=== PATIENT | male | born 1940 | race Caucasian/White ===

== ENCOUNTER 2020-07-11 14:45 | Inpatient (IN) | payer MEDICARE, BC ==
[~2020-07-11] VITALS: Ht 177.8 cm; Wt 79.8 kg
[2020-07-11] MEDS ORDERED: MAGNESIUM HYDROXIDE 30 ML UDC PO PRN (18:00)
[2020-07-11] MEDS ORDERED: BLOOD SUGAR DIAGNOSTIC 1 EACH STRIP IN ONE (18:00)
[2020-07-11] MEDS ORDERED: clonazePAM 0.5 MG TABLET PO PRN ×2 (18:00→22:00)
[2020-07-11] MEDS ORDERED: AMYL1CAP54 PO (18:12)
[2020-07-11] MEDS ORDERED: LOPE2CAP PO (18:12)
[2020-07-11] MEDS ORDERED: LISI20TA30 PO (18:12)
[2020-07-11] MEDS ORDERED: CITA10TA9 PO (18:12)
[2020-07-11] MEDS ORDERED: SIMV-46 PO (18:12)
[2020-07-11] MEDS ORDERED: LORA-259 PO (18:12)
[2020-07-11] MEDS ORDERED: METF-440 PO (18:12)
[2020-07-11] MEDS ORDERED: LOPERAMIDE HCL (2 MG CAP) 2 MG CAPSULE PO PRN (20:30)
[2020-07-11] MEDS: LISINOPRIL (20MG) 20 MG TABLET PO SCH (20:30)
--- NOTE | 2020-07-11 21:09 | NUR ---
GPS RN NOTES: PATIENT REFUSED ACCU CHEK AND 20:30 LISINOPRIL 20MG/1TAB PO ORDERED. PATIENT IS VERY UNCOOPERATIVE AND VERBALLY ABUSIVE. WILL CONTINUE TO MONITOR.
[2020-07-11 22:46] VITALS: BP 167/98
--- NOTE | 2020-07-12 00:09 | NUR ---
GPS DRILLING ENGINEER NOTES: PATIENT ARRIVED THIS UNIT WITH 2 EMT STAFF VIA STRETCHER, ON A 5150 HOLD FOR DTS/DTO PLACED 07/10/20 AT 2005. PER HOLD PATIENT WAS REPORTED MISSING BUT PATIENT FRIEND CALLED TO STATE PATIENT HAS BEEN AT HIS RESIDENCE SINCE NOON BUT HAS REFUSED TO EAT OR DRINK. PATIENT WAS RAMBLING NON STOP AND MAKING PARANOID STATEMENTS, DISORIENTED, DELUSIONAL, NOT ABLE TO MAINTAIN TRAIN OF THOUGHTS, AND WAS REPORTEDLY CARRYING A LOADED FIREARM IN HIS POCKET. UPON FACE TO FACE EVALUATION PATIENT PRESENTS A/O X1, BLUNTED AFFECT, DELUSIONAL, PARANOID, UNCOOPERATIVE, VERBALLY ABUSIVE TO STAFF, DISORIENTED, CONFUSED, CURSING. REFUSING REDIRECTION. PATIENT HAS STEADY GAIT. BLADDER AND BOWEL CONTINENT. PATIENT WAS ADVISED OF HIS HOLD AND PATIENTS RIGHT BOOKLET GIVEN . PATIENT IS UNDER THE PSYCH CARE OF DR. AWAN AND THE MEDICAL CARE OF DR. CRAIN. PATIENT BELONGINGS WERE INVENTORIED AND CHECKED FOR CONTRABAND. ALL CONTRABAND REMOVED AND STORED IN PATIENT HALLWAY LOCKER. SKIN ASSESSMENT DONE AND WOUND CARE CONSULT ORDERED. PATIENT REFUSED TO SIGN ADMISSION PAPERWORK, PATIENT REFUSED ACCU CHEK, AND MRSA. PATIENT DENIES PAIN OR DISCOMFORT AT THIS TIME. DENIES SI/HI AT THIS TIME. BED IN LOWEST POSITION AND LOCKED WITH SIDE RAILS UP X2. BED ALARM ON AND CALL LIGHT WITHIN REACH. FLUID AND SNACKS GIVEN TOLERATED. WILL CONTINUE TO MONITOR Q15MIN ROUNDS FOR SAFETY, MOOD AND BEHAVIOR.
--- NOTE | 2020-07-12 06:35 | NUR ---
GPS RN CLOSING NOTES: PATIENT IS AWAKE, A/O X1, CURRENTLY SITTING IN HALLWAY. PATIENT SLEPT 2HRS THIS SHIFT. SKIN ASSESSMENT DONE, PICTURES TAKEN AND PLACED IN PATIENT CHART. NO S/S OF DISTRESS. RESPIRATION EVEN AND UNLABORED WITH EQUAL RISE AND FALL OF THE CHEST ON ROOM AIR. PATIENT REFUSED ALL PO MEDS THIS SHIFT. BED IN LOWEST POSITION AND LOCKED WITH SIDE RAILS UP X2. WILL CONTINUE TO MONITOR FOR SAFETY, MOOD AND BEHAVIOR AND ENDORSE TO AM SHIFT
--- NOTE | 2020-07-12 07:15 | NUR ---
gps gift consultant: notes lindy (daughter) called back and spoke to mervat (rn) and updated plan of care and behaviors.
[2020-07-12] MEDS: LIPASE/PROTEASE/AMYLASE 1 EACH CAPSULE.DR PO SCH ×3 (08:00→17:18)
[2020-07-12] MEDS: METFORMIN 500 MG TABLET PO SCH ×2 (08:30→17:00)
[2020-07-12] MEDS: LISINOPRIL (20MG) 20 MG TABLET PO SCH (08:30)
--- NOTE | 2020-07-12 08:31 | NUR ---
gps twister doffer: notes offered am meds, but pt started cursing. also pt refused to eat breakfast and refused vital signs.
[2020-07-12] MEDS ORDERED: HALOPERIDOL LACTATE INJ 5 MG/ML VIAL IM STA (11:14)
[2020-07-12] MEDS ORDERED: LORAZEPAM INJ 2 MG/ML VIAL IM STA (11:14)
[2020-07-12] MEDS ORDERED: CITALOPRAM HYDROBROMIDE 10 MG TABLET PO SCH (13:00)
--- NOTE | 2020-07-12 14:00 | NUR ---
RN NOTE :At 11:15 Patient agitated ,pacing in hallway ,yelling at staff ,not following directions ,paranoid and suspicious .Offered po Ativan 1:1 interaction with patient but unsuccessful ,called with new order Ativan 1mg IM ,Haldol 2.5 mg IM ,given IM injection by primary NURSE at 12:25 no physical hold and patient accept the injection voluntarily .patient refused VS x4 every 15 minutes ,no SOB ,no s/s of distress noted patient tolerated injection well ,will continue to monitor .
[2020-07-12 16:00] VITALS: BP 164/86
[2020-07-12] MEDS ORDERED: DEXTROSE 50%-WATER 50 ML DISP.SYRIN IV PRN (16:30)
[2020-07-12] MEDS: SIMVASTATIN 20 MG TABLET PO SCH (17:18)
[2020-07-12] MEDS: BLOOD SUGAR DIAGNOSTIC 1 EACH STRIP IN SCH ×2 (17:18→22:00)
[2020-07-12] MEDS: DIVALPROEX SODIUM 125 MG CAP.SPRINK PO SCH ×3 (18:30→21:00)
--- NOTE | 2020-07-12 19:08 | NUR ---
gps siding coreboard inspector: notes pt ask for his medication, but change his mind. pt remains non-compliant with meds.
[2020-07-12 20:00] VITALS: BP 148/75
--- NOTE | 2020-07-12 21:41 | NUR ---
GPS RN NOTES: PATIENT REFUSED 2100 DEPAKOTE 125MG/1CAP PO ORDERED. PER PATIENT "I DON'T TAKE PLACEBO". WILL CONTINUE TO MONITOR.
[2020-07-12] MEDS: OLANZAPINE ZYDIS 5 MG TAB.RAPDIS PO SCH (22:00)
--- NOTE | 2020-07-12 22:07 | NUR ---
GPS RN NOTES: PATIENT REFUSED 2200 OLANZAPINE AND ACCU CHEK ORDERED. WILL CONTINUE TO MONITOR.
--- NOTE | 2020-07-13 06:29 | NUR ---
GPS RN CLOSING NOTES: PATIENT IS AWAKE, A/O X2, AMBULATING IN HALLWAY. PATIENT SLEPT 9HRS THIS SHIFT. NO S/S OF DISTRESS. RESPIRATION EVEN AND UNLABORED WITH EQUAL RISE AND FALL OF THE CHEST ON ROOM AIR. PATIENT REFUSED ALL PO MEDS THIS SHIFT. BED IN LOWEST POSITION AND LOCKED WITH SIDE RAILS UP X2. WILL CONTINUE TO MONITOR FOR SAFETY, MOOD AND BEHAVIOR AND ENDORSE TO AM SHIFT
[2020-07-13 06:57] LABS: ALBUMIN 3.8 g/dL (3.4-5.0); BILIRUBIN,TOTAL 0.6 mg/dL (0.2-1.0); CALCIUM, SERUM 9.3 mg/dL (8.5-10.1); TOTAL PROTEIN, SERUM 7.2 g/dL (6.4-8.2)
[2020-07-13] MEDS: BLOOD SUGAR DIAGNOSTIC 1 EACH STRIP IN SCH ×5 (07:30→21:01)
[2020-07-13 08:00] VITALS: BP 156/98
[2020-07-13] MEDS: LISINOPRIL (20MG) 20 MG TABLET PO SCH (08:16)
[2020-07-13] MEDS: OLANZAPINE ZYDIS 5 MG TAB.RAPDIS PO SCH ×2 (08:16→21:01)
[2020-07-13] MEDS: DIVALPROEX SODIUM 125 MG CAP.SPRINK PO SCH ×2 (08:17→21:00)
[2020-07-13] MEDS: METFORMIN 500 MG TABLET PO SCH ×2 (08:17→16:43)
[2020-07-13] MEDS: LIPASE/PROTEASE/AMYLASE 1 EACH CAPSULE.DR PO SCH ×3 (08:17→18:00)
--- NOTE | 2020-07-13 09:00 | NUR ---
RN NOTE- PT ALERT ORIENTED TO PERSON PLACE CONFUSED BUT INTERACTIVE AND APPROPRIATE, BLUNTED AFFECT, PO INTAKE GOOD , MED COMPLIANT THIS MORNING VISIBLE ON UNIT, TOES SEEN BY GLASS FURNACE TENDER. RAYNAUDS DX , TOES TO BILATERAL FEET W ERYTHEMA AND COLD TO PALPATION.
--- NOTE | 2020-07-13 10:01 | NUR ---
WOUND CARE CONSULT: PT SEEN FOR DISCOLORATION TO TOES, PRESENT ON ADMISSION. PT HAS BLANCHABLE REDNESS TO TOES WITH SMALL SCAB TO LEFT 3RD TOE, PRESENT ON ADMISSION. RECOMMEND DPM CONSULT. DR METCALF NOTIFIED. 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 PT IS AMBULATORY AND CONTINENT. WILL SEE PRN. LITTLEJOHN IN AGREEMENT WITH PLAN OF CARE.
[2020-07-13] MEDS: SIMVASTATIN 20 MG TABLET PO SCH (18:00)
--- NOTE | 2020-07-13 21:51 | NUR ---
GPS RN NOTE MEDICATION REFUSAL PATIENT REFUSED SCHEDULED MEDS DIVALPROEX SODIUM 125 MG AND OLANZAPINE 2.5 MG AND ACCU CHECK OFFERED X3 DESPITE EXPLAINING RISKS AND BENEFITS. PATIENT VERBALLY ABUSIVE AND SPITTING TOWARDS STAFF WHEN OFFERED MEDICATION. WILL CONTINUE TO MONITOR.
[2020-07-14] MEDS: BLOOD SUGAR DIAGNOSTIC 1 EACH STRIP IN SCH ×4 (07:27→21:41)
[2020-07-14] MEDS: LIPASE/PROTEASE/AMYLASE 1 EACH CAPSULE.DR PO SCH ×3 (08:00→17:09)
[2020-07-14] MEDS: DIVALPROEX SODIUM 125 MG CAP.SPRINK PO SCH ×2 (09:00→21:00)
[2020-07-14] MEDS: OLANZAPINE ZYDIS 5 MG TAB.RAPDIS PO SCH ×2 (09:00→21:43)
[2020-07-14] MEDS: NITROGLYCERIN 30 GM TUBE TP SCH (09:00)
[2020-07-14] MEDS: METFORMIN 500 MG TABLET PO SCH ×2 (09:00→17:00)
[2020-07-14] MEDS: LISINOPRIL (20MG) 20 MG TABLET PO SCH (09:00)
--- NOTE | 2020-07-14 09:03 | NUR ---
GPS/RN NOTES PATIENT REFUSED SCHEDULED MEDICATIONS DEPAKOTE 125 MG 1 TAB, GLUCOPHAGE 1000 MG 1 TAB, PRINIVIL 20 MG 1 TAB ZYPREXA 20 MG NITROL OINTMENT. ACCU CHECK OFFERED X3 DESPITE EXPLAINING RISKS AND BENEFITS. PATIENT VERBALLY ABUSIVE, CURSING AND SPITTING TOWARDS STAFF WHEN OFFERED MEDICATION. OFFERED KLONOPIN 0.25 1/2 TAB PATIENT AGREED TO TAKE IT, PATIENT SUDDENLY CHANGE HIS MIND, PATIENT REFUSED IT AGAIN EXPLAINED THE RISK AND BENEFIT X3. KLONOPIN WAS WASTED. MD WAS AWARE FOR MEDICATIONS REFUSAL. WILL CONTINUE TO MONITOR.
--- NOTE | 2020-07-14 12:14 | NUR ---
GPS/RN NOTES PATIENT REFUSED SCHEDULE MEDICATION PANCREAZE 4200 UNIT 2 TABS, EXPLAINED THE RISK AND BENEFITS. WILL CONTINUE TO MONITOR.
--- NOTE | 2020-07-14 15:10 | NUR ---
DPOA Contact: CUCO called the pts daughter/DPOA, Amanda [phone], and asked for the paperwork to be faxed over. CUCO then went over the pts treatment and attempted to discuss the pts discharge plan but the pts DPOA stated that she wanted to see what the pt was going to present like closer to discharge to determine the most appropriate plan. CUCO stated that she will keep her updated.
[2020-07-14] MEDS ORDERED: LORAZEPAM INJ 2 MG/ML VIAL IM STA (15:12)
[2020-07-14] MEDS ORDERED: diphenhydrAMINE HCL 50 MG/ML VIAL IM STA (15:12)
[2020-07-14] MEDS ORDERED: HALOPERIDOL LACTATE INJ 5 MG/ML VIAL IM STA (15:12)
--- NOTE | 2020-07-14 15:16 | NUR ---
GPS RN NOTE: PATIENT VERY AGITATED, IRRITABLE, COMBATIVE TO STAFF, AMBULATORY REFUSED VS, REFUSED PO MEDICATIONS, PT AGGRESSIVE UNABLE TO CONTROL BEHAVIOR. HITTING STAFF. DR. AWAN NOTIFIED WITH ORDER ATIVAN 1 MG IM ONCE,HALDOL 5 MG IM ONCE, BENADRYL 25 MG IM ONCE ORDER PLACED AND CARED OUT WILL CONTINUE MONITORING.
[2020-07-14 16:00] VITALS: BP 149/81
--- NOTE | 2020-07-14 16:10 | NUR ---
Initial Discharge Plan: Pt currently resides at his home located at [address] [place] [address] Rd, [place] [address]; ([phone]). Per pts daughter, Amanda [phone], she is unsure of the discharge plan at this time because it depends on the pts stability at the time of discharge. SW will work with the pts DPOA, pt, and the MD regarding appropriate discharge planning. SW will form a safe and proper discharge.
[2020-07-14] MEDS: SIMVASTATIN 20 MG TABLET PO SCH (17:09)
--- NOTE | 2020-07-14 17:11 | NUR ---
GPS/RN NOTES PATIENT REFUSED SCHEDULED MEDICATIONS PANCREASE 4200 UNIT, GLUCOPHAGE 1000 MG , AND ZOCOR 20MG , DESPITE EXPLAINING RISKS AND BENEFITS. MD WAS AWARE FOR MEDICATIONS REFUSAL. WILL CONTINUE TO MONITOR.
[2020-07-14 20:54] VITALS: BP 112/45
--- NOTE | 2020-07-14 21:43 | NUR ---
GPS/CULINARY WORKER NOTES: PT. REFUSED HS MEDS. OFFERED 3X. EXPLAINED RISK AND BENEFITS. PT. STILL REFUSED. WILL CONTINUE TO MONITOR.
[2020-07-15] MEDS: MAG HYDROX/AL HYDROX/SIMETH 30 ML UDC PO PRN (06:06)
--- NOTE | 2020-07-15 06:06 | NUR ---
GPS RN NOTE, PATIENT HAS A COMPLAINT OF INDIGESTION AND IS REQUESTING MAALOX AT THIS TIME. PATIENT VITAL SIGNS ARE STABLE. GAVE MAALOX 30 ML 1 UNIT DOSE Q12HR PRN ORDERED. WILL CONTINUE TO MONITOR THIS PATIENT WITH THE HELP OF STAFF.
[2020-07-15] MEDS: BLOOD SUGAR DIAGNOSTIC 1 EACH STRIP IN SCH ×4 (07:33→21:13)
[2020-07-15] MEDS: ACETAMINOPHEN 325 MG TABLET PO PRN (07:39)
--- NOTE | 2020-07-15 07:39 | NUR ---
RN NOTE- C/O BACK PAIN GENERALIZED . TYLENOL 650 MG GIVEN
[2020-07-15] MEDS: INSULIN REGULAR, HUMAN 100 UNIT/ML 3 ML VIAL SQ PRN (07:42)
[2020-07-15 08:00] VITALS: BP 148/94
[2020-07-15] MEDS: LIPASE/PROTEASE/AMYLASE 1 EACH CAPSULE.DR PO SCH ×3 (08:00→17:42)
[2020-07-15] MEDS: LISINOPRIL (20MG) 20 MG TABLET PO SCH (08:28)
[2020-07-15] MEDS: METFORMIN 500 MG TABLET PO SCH ×2 (08:28→16:46)
[2020-07-15] MEDS: DIVALPROEX SODIUM 125 MG CAP.SPRINK PO SCH ×2 (08:28→21:07)
[2020-07-15] MEDS: NITROGLYCERIN 30 GM TUBE TP SCH (08:29)
[2020-07-15] MEDS: OLANZAPINE ZYDIS 5 MG TAB.RAPDIS PO SCH ×2 (08:29→22:00)
--- NOTE | 2020-07-15 09:00 | NUR ---
RN NOTE- PT ALERT ORIENTED TO SELF, CONFUSED DISORGANIZED. OPPOSITIONAL TO MEDS AND CARE, ISOLATIVE AND WITHDRAWN, PO INTAKE FAIR, PENDING REISE HEARING
--- NOTE | 2020-07-15 14:22 | NUR ---
Dr. Avelar spoke to pt. and agreed to take the meds. Dr. Avelar ordered Zyprexa Zydis 2.5 mg po x1 and Depakote sprinkle 125 mg x1.
--- NOTE | 2020-07-15 14:24 | NUR ---
Dr. Avelar made aware that the hearing and [facility] hearing scheduled tomorrow 07/16/20 at 4:00 pm.
[2020-07-15] MEDS ORDERED: DIVALPROEX SODIUM 125 MG CAP.SPRINK PO ONE (14:30)
[2020-07-15] MEDS ORDERED: OLANZAPINE ZYDIS 5 MG TAB.RAPDIS PO ONE (14:30)
[2020-07-15 16:00] VITALS: BP 154/81
--- NOTE | 2020-07-15 17:00 | NUR ---
RN NOTE- ACCU CHECK 154. PT REFUSES SSI
[2020-07-15] MEDS: SIMVASTATIN 20 MG TABLET PO SCH (17:42)
[2020-07-15 20:00] VITALS: BP 152/73
[2020-07-15 20:15] VITALS: BP 152/73
--- NOTE | 2020-07-15 22:08 | NUR ---
RN NOTE PATIENT REFUSED ZYPREXA ZYDIS 2.5 MG DESPITE OF RISKS & BENEFIT EXPLANATIONS. FIRST PATIENT AGREED TO TAKE THE MEDICINE BUT WHEN SAW IT IN A MEDICINE CUP, PATIENT STATED, DON'T EVEN GIVE ME THAT HALF WHITE PILL, I DON'T WANT IT." PT. CONTINUED TO REFUSE ZYPREXA ZYDIS SCHEDULED. MEDICINE WAS OPENED, OFFERED, REFUSED BY THE PATIENT & WASTED. WILL CONTINUE TO MONITOR THE PATIENT.
[2020-07-16] MEDS: MAG HYDROX/AL HYDROX/SIMETH 30 ML UDC PO PRN ×2 (00:24→20:31)
--- NOTE | 2020-07-16 00:25 | NUR ---
GPS RN NOTE, PATIENT HAS A COMPLAINT OF INDIGESTION AND IS REQUESTING MAALOX AT THIS TIME. PATIENT VITAL SIGNS ARE STABLE. GAVE MAALOX 30 ML 1 UNIT DOSE Q4HR PRN ORDERED. WILL CONTINUE TO MONITOR THIS PATIENT WITH THE HELP OF STAFF.
--- NOTE | 2020-07-16 04:28 | NUR ---
RN NOTE: IMODIUM GIVEN PATIENT VERBALIZED THAT HE HAD LOOSE BM X 1 & REQUESTED TO TAKE MEDICINE RIGHT NOW. IMODIUM 2 MG 1 CAP PO ADMINISTERED. WILL CONTINUE TO MONITOR FOR EFFECTIVENESS OF THE MEDICINE.
[2020-07-16] MEDS: ACETAMINOPHEN 325 MG TABLET PO PRN ×2 (06:13→23:54)
--- NOTE | 2020-07-16 06:13 | NUR ---
GPS RN NOTE, PATIENT HAS A COMPLAINT OF CHRONIC LOWER BACK PAIN AT 2 OUT 10 ON THE PAIN SCALE AND IS REQUESTING TYLENOL AT THIS TIME. PATIENT VITAL SIGNS ARE STABLE. GAVE TYLENOL 650 MG PO Q6HR PRN ORDERED. WILL REASSESS FOR PAIN AND I WILL CONTINUE TO MONITOR THIS PATIENT WITH THE HELP OF STAFF.
[2020-07-16] MEDS: BLOOD SUGAR DIAGNOSTIC 1 EACH STRIP IN SCH ×4 (07:41→21:37)
[2020-07-16 08:00] VITALS: BP 148/86
[2020-07-16] MEDS: LIPASE/PROTEASE/AMYLASE 1 EACH CAPSULE.DR PO SCH ×3 (08:17→17:05)
[2020-07-16] MEDS: METFORMIN 500 MG TABLET PO SCH ×2 (08:17→16:05)
[2020-07-16] MEDS: DIVALPROEX SODIUM 125 MG CAP.SPRINK PO SCH ×2 (08:17→20:17)
[2020-07-16] MEDS: LISINOPRIL (20MG) 20 MG TABLET PO SCH (08:17)
[2020-07-16] MEDS: OLANZAPINE ZYDIS 5 MG TAB.RAPDIS PO SCH ×2 (08:20→21:30)
[2020-07-16] MEDS: GLUCERNA SHAKE 237 ML CAN PO SCH ×2 (08:28→16:05)
[2020-07-16] MEDS: NITROGLYCERIN 30 GM TUBE TP SCH (08:28)
--- NOTE | 2020-07-16 09:00 | NUR ---
RN NOTE- PT A BIT MORE CALM, INTERACTIVE TODAY BLUNTED AFFECT MED COMPLIANT THOUGH DOESN'T WANT ZYPREXA "MAKES ME SLEEPY" HE STATED. HOWEVER, PT TOOK AFTER I EXPLAINED IT WAS REQUIRED BY MD AND TX REGIMEN. PO INTAKE GOOD, TOPICAL NITRO PASTE APPLIED TO TOES BILATERAL FEET FOR RAYNAUDS
--- NOTE | 2020-07-16 14:46 | NUR ---
RN NOTE- COVID RAPID TEST COMPLETED FOR PLACEMENT SUNDAY
[2020-07-16 15:57] VITALS: BP 139/89
--- NOTE | 2020-07-16 16:05 | NUR ---
DPOA Contact: CUCO called the pts daughter/DPOA, Amanda [phone], and left a voicemail informing her about the pts Risilvio.
[2020-07-16] MEDS: SIMVASTATIN 20 MG TABLET PO SCH (17:05)
--- NOTE | 2020-07-16 17:05 | NUR ---
RN NOTE- ACCU CHECK - BS-135 PT REFUSED SSI
[2020-07-16 20:00] VITALS: BP 151/83
[2020-07-16 20:18] VITALS: BP 151/83
--- NOTE | 2020-07-16 20:35 | NUR ---
RN NOTE: PRN MAALOX GIVEN PATIENT IS C/O INDIGESTION & GAS, PATIENT REQUESTED MAALOX. PRN MAALOX 30 ML PO ADMINISTERED ORDERED. WILL CONTINUE TO MONITOR.
--- NOTE | 2020-07-16 23:54 | NUR ---
GPS RN NOTE: PAIN PATIENT C/O CHRONIC LOWER BACK PAIN AT 3 OUT 10 ON THE PAIN SCALE AND IS REQUESTING TYLENOL AT THIS TIME. PATIENT VITAL SIGNS ARE STABLE. GAVE TYLENOL 650 MG PO PRN ORDERED. WILL CONTINUE TO MONITOR THE PATIENT.
[2020-07-17 08:00] VITALS: BP 152/95
[2020-07-17] MEDS: GLUCERNA SHAKE 237 ML CAN PO SCH ×2 (08:00→17:00)
[2020-07-17] MEDS: OLANZAPINE ZYDIS 5 MG TAB.RAPDIS PO SCH ×2 (08:10→21:46)
[2020-07-17] MEDS: LIPASE/PROTEASE/AMYLASE 1 EACH CAPSULE.DR PO SCH ×3 (08:10→17:03)
[2020-07-17] MEDS: BLOOD SUGAR DIAGNOSTIC 1 EACH STRIP IN SCH ×4 (08:11→21:30)
[2020-07-17] MEDS: DIVALPROEX SODIUM 125 MG CAP.SPRINK PO SCH ×2 (08:11→21:11)
[2020-07-17] MEDS: METFORMIN 500 MG TABLET PO SCH ×2 (08:11→17:03)
[2020-07-17] MEDS: LISINOPRIL (20MG) 20 MG TABLET PO SCH (08:11)
[2020-07-17] MEDS: NITROGLYCERIN 30 GM TUBE TP SCH (08:26)
[2020-07-17 16:00] VITALS: BP 127/79
[2020-07-17] MEDS: MAG HYDROX/AL HYDROX/SIMETH 30 ML UDC PO PRN (16:36)
[2020-07-17] MEDS: SIMVASTATIN 20 MG TABLET PO SCH (17:03)
[2020-07-17 19:39] VITALS: BP 151/84
[2020-07-17 19:45] VITALS: BP 151/84
--- NOTE | 2020-07-17 20:15 | NUR ---
RN NOTE PATIENT VERBALIZED THAT HE IS "SLIGHTLY CONSTIPATED" & HAD A BOWEL MOVEMENT ON 07/16/20 & WAS NORMAL. PATIENT REFUSED TO TAKE ANY MEDICINE AT THIS TIME, OFFERED HIM PRUNE JUICE & PT. AGREED TO TAKE IT. PRUNE JUICE GIVEN TO THE PATIENT & TOLERATED WELL WILL CONTINUE TO MONITOR.
--- NOTE | 2020-07-17 20:56 | NUR ---
RN NOTE PER PATIENT, " PRUNE JUICE WORKED, I HAD BM, BIG ONE, I AM GOOD NOW." WILL CONTINUE TO MONITOR.
[2020-07-17] MEDS: INSULIN REGULAR, HUMAN 100 UNIT/ML 3 ML VIAL SQ PRN (21:28)
--- NOTE | 2020-07-17 21:29 | NUR ---
RN NOTE: REFUSED INSULIN PATIENT'S BLOOD SUGAR IS 132 MG/DL, PATIENT REFUSED SSI FOR COVERAGE X 3 DESPITE OF EXPLANATIONS.
[2020-07-18] MEDS: BLOOD SUGAR DIAGNOSTIC 1 EACH STRIP IN SCH ×4 (07:52→21:21)
[2020-07-18] MEDS: GLUCERNA SHAKE 237 ML CAN PO SCH ×2 (07:59→17:00)
[2020-07-18 08:00] VITALS: BP 140/83
[2020-07-18] MEDS: LISINOPRIL (20MG) 20 MG TABLET PO SCH (08:43)
[2020-07-18] MEDS: DIVALPROEX SODIUM 125 MG CAP.SPRINK PO SCH ×2 (08:43→21:20)
[2020-07-18] MEDS: METFORMIN 500 MG TABLET PO SCH ×2 (08:44→18:18)
[2020-07-18] MEDS: OLANZAPINE ZYDIS 5 MG TAB.RAPDIS PO SCH ×2 (08:44→21:21)
[2020-07-18] MEDS: LIPASE/PROTEASE/AMYLASE 1 EACH CAPSULE.DR PO SCH ×3 (08:44→18:19)
[2020-07-18] MEDS: NITROGLYCERIN 30 GM TUBE TP SCH (08:45)
[2020-07-18 16:06] VITALS: BP 110/71
[2020-07-18] MEDS: SIMVASTATIN 20 MG TABLET PO SCH (18:19)
--- NOTE | 2020-07-18 20:20 | NUR ---
GPS RN NOTE PATIENT HAD PREVIOUSLY EATEN 1/2 A SANDWICH 30 MINUTES AGO. DEMANDING FOR MORE FOOD. PATIENT REQUESTED MAALOX AND ADMINISTERED ORDERED. Addendum: 07/19/20 at 0250 by SUHBHAM PAN RN ERROR: MAALOX NOT ADMINISTERED AT THIS TIME. PLS DISREGARD.
[2020-07-18 20:38] VITALS: BP 118/64
[2020-07-18] MEDS: INSULIN REGULAR, HUMAN 100 UNIT/ML 3 ML VIAL SQ PRN (21:21)
[2020-07-18] MEDS: MAG HYDROX/AL HYDROX/SIMETH 30 ML UDC PO PRN (22:10)
--- NOTE | 2020-07-18 22:10 | NUR ---
GPS RN NOTE PATIENT C/O INDIGESTION AND REQUESTED FOR MAALOX. ADMINISTERED MAALOX ORDERED. WILL CONTINUE TO REASSESS PATIENT FOR INDIGESTION WITHIN 1 HOUR.
[2020-07-19] MEDS: MAG HYDROX/AL HYDROX/SIMETH 30 ML UDC PO PRN ×2 (02:38→22:01)
--- NOTE | 2020-07-19 02:38 | NUR ---
GPS RN NOTE PATIENT WANDERING IN HALLWAYS. OFFERED AMBIEN BUT PATIENT REFUSED. REDIRECTED PATIENT PATIENT TO GO BACK TO ROOM. PATIENT C/O 3/10 BACK PAIN AND ADMINISTERED TYLENOL ORDERED. PATIENT REQUESTED FOR MAALOX AND ADMINISTERED ORDERED. WILL REASSESS FOR PAIN WITHIN 1 HOUR.
[2020-07-19] MEDS: ACETAMINOPHEN 325 MG TABLET PO PRN (02:39)
[2020-07-19] MEDS: BLOOD SUGAR DIAGNOSTIC 1 EACH STRIP IN SCH ×4 (06:47→21:16)
[2020-07-19] MEDS: INSULIN REGULAR, HUMAN 100 UNIT/ML 3 ML VIAL SQ PRN ×2 (07:28→16:39)
[2020-07-19 08:00] VITALS: BP 132/71
[2020-07-19] MEDS: METFORMIN 500 MG TABLET PO SCH ×2 (08:04→17:02)
[2020-07-19] MEDS: LIPASE/PROTEASE/AMYLASE 1 EACH CAPSULE.DR PO SCH ×3 (08:04→17:02)
[2020-07-19] MEDS: OLANZAPINE ZYDIS 5 MG TAB.RAPDIS PO SCH ×2 (08:04→21:16)
[2020-07-19] MEDS: LISINOPRIL (20MG) 20 MG TABLET PO SCH (08:05)
[2020-07-19] MEDS: DIVALPROEX SODIUM 125 MG CAP.SPRINK PO SCH ×2 (08:05→21:16)
[2020-07-19] MEDS: GLUCERNA SHAKE 237 ML CAN PO SCH ×2 (08:27→17:02)
[2020-07-19] MEDS: NITROGLYCERIN 30 GM TUBE TP SCH (08:54)
[2020-07-19 16:00] VITALS: BP 140/69
[2020-07-19] MEDS: SIMVASTATIN 20 MG TABLET PO SCH (17:02)
[2020-07-19 20:06] VITALS: BP 93/44
--- NOTE | 2020-07-19 21:30 | NUR ---
RN GPS NOTE: PATIENT BLOOD SUGAR LEVEL 96 MG/DL, NO INSULIN NEEDED PER SLIDING SCALE. NO S/S OF HYPER/HYPOGLYCEMIA NOTED. SNACKS PROVIDED. WILL CONTINUE TO MONITOR THROUGHOUT SHIFT.
--- NOTE | 2020-07-19 22:15 | NUR ---
GPS RN NOTE PATIENT C/O INDIGESTION AND REQUESTED FOR MAALOX. ADMINISTERED MAALOX ORDERED. WILL CONTINUE TO MONITOR THROUGHOUT SHIFT.
[2020-07-20] MEDS: ACETAMINOPHEN 325 MG TABLET PO PRN (01:26)
[2020-07-20 08:00] VITALS: BP_SYST 132; BP_SYST 141; BP_SYST 148; BP_DIAS 74; BP_DIAS 76; BP_DIAS 77
[2020-07-20] MEDS: INSULIN REGULAR, HUMAN 100 UNIT/ML 3 ML VIAL SQ PRN ×2 (08:24→17:31)
[2020-07-20] MEDS: BLOOD SUGAR DIAGNOSTIC 1 EACH STRIP IN SCH ×4 (08:28→21:08)
[2020-07-20] MEDS: GLUCERNA SHAKE 237 ML CAN PO SCH ×2 (08:52→17:34)
[2020-07-20] MEDS: METFORMIN 500 MG TABLET PO SCH ×2 (08:53→17:33)
[2020-07-20] MEDS: NITROGLYCERIN 30 GM TUBE TP SCH (08:53)
[2020-07-20] MEDS: LIPASE/PROTEASE/AMYLASE 1 EACH CAPSULE.DR PO SCH ×3 (08:53→17:33)
[2020-07-20] MEDS: LISINOPRIL (20MG) 20 MG TABLET PO SCH (08:54)
[2020-07-20] MEDS: DIVALPROEX SODIUM 125 MG CAP.SPRINK PO SCH ×2 (08:54→21:00)
[2020-07-20] MEDS: OLANZAPINE ZYDIS 5 MG TAB.RAPDIS PO SCH ×3 (08:54→21:08)
--- NOTE | 2020-07-20 09:25 | NUR ---
medicated with ativan for nerves.
--- NOTE | 2020-07-20 12:00 | NUR ---
ua sent as per orders.
--- NOTE | 2020-07-20 12:28 | NUR ---
DPOA Contact: CUCO called the pts daughter/DPOA, Amanda [phone], and informed her that the pt is going to be discharged on Sunday and she stated that she does not think that the pt can return home at this time. She asked for assistance in placing the pt and CUCO informed her about the SNFs in the [place] area. CUCO will speak to the MD to find out which SNF is appropriate and refer the pt. CUCO stated that she will keep the pts daughter updated.
--- NOTE | 2020-07-20 13:27 | NUR ---
SNF Referral: CUCO faxed a referral to [facility] with attn to Ash to the fax number: [phone].
[2020-07-20 15:56] LABS: BILIRUBIN,URINE NEGATIVE (NEGATIVE); COLOR,URINE YELLOW (YELLOW); LEUKOCYTE ESTERASE ,URINE NEGATIVE (NEGATIVE); NITRITE, URINE NEGATIVE (NEGATIVE); PH,URINE 7.5 (5.0-8.0); PROTEIN,URINE NEGATIVE (NEGATIVE); UGLUCOSE NEGATIVE (NEGATIVE); UROBILINOGEN,URINE 0.2 EU/dL (0.2)
[2020-07-20] MEDS: SIMVASTATIN 20 MG TABLET PO SCH (17:33)
--- NOTE | 2020-07-20 18:45 | NUR ---
UP AT NURSE'S STATION OFTEN.
[2020-07-20] MEDS: HALOPERIDOL LACTATE INJ 5 MG/ML VIAL IM PRN (21:38)
--- NOTE | 2020-07-20 21:38 | NUR ---
GPS-RN NOTES: PATIENT REFUSED DEPAKOTE AND ZYPREXA PO FOR TONIGHT. DESPITE EXPLAINING ALL RISKS AND BENEFITS. PATIENT CONTINUED TO REFUSE. ADMINISTERED HALDOL IM TO LEFT GLUTEUS LEONCIO FOR REFUSAL OF ZYPREXA PO. PATIENT TOLERATED WELL. WILL CONTINUE TO MONITOR FOR PATIENT'S SAFETY.
[2020-07-21] MEDS: ACETAMINOPHEN 325 MG TABLET PO PRN (05:56)
[2020-07-21 08:00] VITALS: BP 159/72
[2020-07-21] MEDS: BLOOD SUGAR DIAGNOSTIC 1 EACH STRIP IN SCH ×4 (08:12→22:38)
[2020-07-21] MEDS: INSULIN REGULAR, HUMAN 100 UNIT/ML 3 ML VIAL SQ PRN (08:16)
[2020-07-21] MEDS: GLUCERNA SHAKE 237 ML CAN PO SCH ×2 (08:44→17:26)
[2020-07-21] MEDS: NITROGLYCERIN 30 GM TUBE TP SCH (08:44)
[2020-07-21] MEDS: OLANZAPINE ZYDIS 5 MG TAB.RAPDIS PO SCH ×3 (08:45→21:27)
[2020-07-21] MEDS: LISINOPRIL (20MG) 20 MG TABLET PO SCH (08:45)
[2020-07-21] MEDS: DIVALPROEX SODIUM 125 MG CAP.SPRINK PO SCH ×3 (08:45→21:26)
[2020-07-21] MEDS: METFORMIN 500 MG TABLET PO SCH ×2 (08:45→17:28)
[2020-07-21] MEDS: LIPASE/PROTEASE/AMYLASE 1 EACH CAPSULE.DR PO SCH ×3 (08:46→17:28)
[2020-07-21] MEDS: HALOPERIDOL LACTATE INJ 5 MG/ML VIAL IM PRN (08:59)
--- NOTE | 2020-07-21 11:52 | NUR ---
SNF Contact: Ash ([phone]), admissions from [facility], contacted the SW and stated that the pt was accepted to their facility.
--- NOTE | 2020-07-21 11:54 | NUR ---
DPOA Contact: CUOC called the pts daughter/DPOA, Amanda ([phone]), and left a voicemail informing her that the pt was accepted to [facility].
[2020-07-21 16:00] VITALS: BP 150/77
[2020-07-21] MEDS: SIMVASTATIN 20 MG TABLET PO SCH (17:27)
[2020-07-21 20:25] VITALS: BP 150/84
[2020-07-22 08:00] VITALS: BP 152/93
[2020-07-22] MEDS: BLOOD SUGAR DIAGNOSTIC 1 EACH STRIP IN SCH ×4 (08:05→21:11)
[2020-07-22] MEDS: METFORMIN 500 MG TABLET PO SCH ×2 (08:06→16:47)
[2020-07-22] MEDS: LIPASE/PROTEASE/AMYLASE 1 EACH CAPSULE.DR PO SCH ×3 (08:06→17:13)
[2020-07-22] MEDS: OLANZAPINE ZYDIS 5 MG TAB.RAPDIS PO SCH ×2 (08:06→22:06)
[2020-07-22] MEDS: GLUCERNA SHAKE 237 ML CAN PO SCH ×2 (08:06→16:48)
[2020-07-22] MEDS: DIVALPROEX SODIUM 125 MG CAP.SPRINK PO SCH ×2 (08:06→21:11)
[2020-07-22] MEDS: LISINOPRIL (20MG) 20 MG TABLET PO SCH (08:07)
[2020-07-22] MEDS: NITROGLYCERIN 30 GM TUBE TP SCH (08:13)
--- NOTE | 2020-07-22 10:28 | NUR ---
DPOA Contact: CUCO called the pts daughter/DPOA, Amanda ([phone]), to return her voicemail. Pts daughter stated that she is having second thoughts about the pt being placed far away and stated that she would like the SW to attempt to place the pt closer. She listed the following three facilities: [facility], and [facility]. CUCO stated that she will send the referral.
--- NOTE | 2020-07-22 10:35 | NUR ---
SNF Referral: CUCO faxed a referral to the [facility] with attn to Keily to the fax number: [phone].
--- NOTE | 2020-07-22 10:40 | NUR ---
SNF Referral: SW faxed a referral to the following two facilities as well per request of the pts daughter/DPOA: [facility] with attn to [place] to the fax number: [phone] [facility] with attn to Deisy to the fax number: [phone].
--- NOTE | 2020-07-22 14:10 | NUR ---
DPOA Contact: CUCO called the pts daughter/DPOA, Amanda ([phone]), and left a voicemail that informed her that the SW sent out the referrals that she had requested and that the SW spoke to the MD who stated that he will discharge the pt on Sunday as he is planning to give the pt a long acting dose.
[2020-07-22 16:00] VITALS: BP 142/80
[2020-07-22] MEDS: SIMVASTATIN 20 MG TABLET PO SCH (17:12)
--- NOTE | 2020-07-22 17:28 | NUR ---
RN-NOTES PATIENT BS WAS 145MG/DL ,REFUSED 2 UNITS OF REGULAR INSULIN. EXPLAINED RISK AND BENEFITS BUT STATED" MY SUGAR IT'S NOT THAT HIGH". OFFERED X3.
[2020-07-22 20:26] VITALS: BP 167/91
[2020-07-22] MEDS: BENZTROPINE MESYLATE (1 MG) 1 MG TABLET PO SCH (20:45)
[2020-07-22] MEDS: INSULIN REGULAR, HUMAN 100 UNIT/ML 3 ML VIAL SQ PRN (22:06)
[2020-07-22 22:26] VITALS: BP 138/80
[2020-07-23] MEDS: ACETAMINOPHEN 325 MG TABLET PO PRN (06:31)
[2020-07-23] MEDS: BLOOD SUGAR DIAGNOSTIC 1 EACH STRIP IN SCH ×4 (07:54→21:20)
[2020-07-23] MEDS: GLUCERNA SHAKE 237 ML CAN PO SCH ×2 (07:54→16:42)
[2020-07-23] MEDS: LIPASE/PROTEASE/AMYLASE 1 EACH CAPSULE.DR PO SCH ×3 (07:54→17:57)
[2020-07-23 08:00] VITALS: BP 131/68
[2020-07-23] MEDS: METFORMIN 500 MG TABLET PO SCH ×2 (08:09→16:40)
[2020-07-23] MEDS: DIVALPROEX SODIUM 125 MG CAP.SPRINK PO SCH ×2 (08:09→20:54)
[2020-07-23] MEDS: BENZTROPINE MESYLATE (1 MG) 1 MG TABLET PO SCH ×2 (08:10→16:41)
[2020-07-23] MEDS: LISINOPRIL (20MG) 20 MG TABLET PO SCH (08:10)
[2020-07-23] MEDS: OLANZAPINE ZYDIS 5 MG TAB.RAPDIS PO SCH ×2 (08:10→21:20)
[2020-07-23] MEDS: NITROGLYCERIN 30 GM TUBE TP SCH (08:16)
[2020-07-23] MEDS: INSULIN REGULAR, HUMAN 100 UNIT/ML 3 ML VIAL SQ PRN (09:01)
--- NOTE | 2020-07-23 11:37 | NUR ---
SNF Contact: Pt was denied from the three facilities that the SW referred the pt.
--- NOTE | 2020-07-23 11:38 | NUR ---
DPOA Contact: CUCO called the pts daughter/DPOA, Amanda ([phone]), and left a voicemail stating that the pt was denied from all of the facilities and informed her that this is not uncommon as once pts are referred outside of the [place] area pts are not accepted easily from a psychiatric unit.
--- NOTE | 2020-07-23 14:21 | NUR ---
DPOA Contact: Pts daughter/DPOA, Amanda ([phone]), contacted the SW and stated that she wants the pt to be referred to two other facilities and is upset with the care that the pt and herself has received. She states that the MD has not been calling her and she has called the office of Dr. Avelar and Dr. Wilson to get information. She stated that she does not want the pt to be placed at a facility that either MD go to and instead she wants a lateral transfer. SW explained that the pt is nearing the end of his hold and a lateral transfer will be difficult to accomplish. SW explained that the MD has a plan to provide the pt with a long acting medication that will further stabilize the pt and the pts daughter/DPOA became agitated and stated that she does not want the pt to receive this medication. SW informed her that she will message the MD to give her a call so this case can be discussed between the two of them.
--- NOTE | 2020-07-23 14:25 | NUR ---
Lateral Transfer Referrals: SW faxed the following two referrals for the lateral transfer as requested by the pts DPOA and daughter, Amanda ([phone]): [facility] with attn to Gavin to the fax number: [phone] [facility] with attn to Emerita to the fax number: [phone].
[2020-07-23 16:00] VITALS: BP 121/67
--- NOTE | 2020-07-23 16:36 | NUR ---
RN-NOTES RECEIVED T.O ORDER FROM DR. MALDONADO TO CHANGE SERVICE TO DR. HAYES. DR. HAYES MADE AWARE AND ACCEPTED.NOTED AND CARRIED OUT.
--- NOTE | 2020-07-23 17:55 | NUR ---
RN-NOTES PATIENT BS WAS 152 MG/DL ,REFUSED 2 UNITS OF REGULAR INSULIN. STATED"IT'S NOT THAT HIGH". OFFERED X3.
[2020-07-23] MEDS: SIMVASTATIN 20 MG TABLET PO SCH (17:57)
[2020-07-23 20:20] VITALS: BP 144/71
[2020-07-23] MEDS: TEMAZEPAM 7.5 MG CAPSULE PO PRN (23:17)
--- NOTE | 2020-07-23 23:18 | NUR ---
RN NOTES: INSOMNIA PT. C/O UNABLE TO SLEEP , RESTORIL 7.5 MG PO PRN GIVEN PER PT. REQUEST, WILL CONTINUE TO MONITOR.
[2020-07-24 08:00] VITALS: BP 135/75
[2020-07-24] MEDS: BLOOD SUGAR DIAGNOSTIC 1 EACH STRIP IN SCH ×4 (08:01→21:30)
[2020-07-24] MEDS: GLUCERNA SHAKE 237 ML CAN PO SCH ×2 (08:01→16:46)
[2020-07-24] MEDS: METFORMIN 500 MG TABLET PO SCH ×2 (08:09→16:30)
[2020-07-24] MEDS: BENZTROPINE MESYLATE (1 MG) 1 MG TABLET PO SCH ×2 (08:10→16:31)
[2020-07-24] MEDS: LIPASE/PROTEASE/AMYLASE 1 EACH CAPSULE.DR PO SCH ×3 (08:10→17:54)
[2020-07-24] MEDS: DIVALPROEX SODIUM 125 MG CAP.SPRINK PO SCH ×2 (08:10→21:00)
[2020-07-24] MEDS: LISINOPRIL (20MG) 20 MG TABLET PO SCH (08:10)
[2020-07-24] MEDS: OLANZAPINE ZYDIS 5 MG TAB.RAPDIS PO SCH ×2 (08:10→21:31)
[2020-07-24] MEDS: NITROGLYCERIN 30 GM TUBE TP SCH (09:15)
[2020-07-24 16:00] VITALS: BP 148/70
[2020-07-24] MEDS: SIMVASTATIN 20 MG TABLET PO SCH (17:54)
[2020-07-24 19:53] VITALS: BP 143/77
[2020-07-24 20:00] VITALS: BP 143/77
[2020-07-24] MEDS: HALOPERIDOL LACTATE INJ 5 MG/ML VIAL IM PRN (21:35)
--- NOTE | 2020-07-25 06:45 | NUR ---
NURSES NOTES: PATIENT IN THE DAY ROOM, AWAKE, WATCHING TV. NO COMPLAINS OF PAIN THIS TIME. ATTENDED TO ALL PATIENT'S NEEDS. WILL ENDORSE PATIENT'S CARE TO DAY SHIFT NURSE.
[2020-07-25] MEDS: BLOOD SUGAR DIAGNOSTIC 1 EACH STRIP IN SCH ×4 (07:30→21:23)
[2020-07-25 07:44] LABS: CALCIUM, SERUM 9.2 mg/dL (8.5-10.1); CREATININE 0.8 mg/dL (0.6-1.3); POTASSIUM 4.1 mmol/L (3.5-5.1)
[2020-07-25 08:00] VITALS: BP 134/68
[2020-07-25] MEDS: LIPASE/PROTEASE/AMYLASE 1 EACH CAPSULE.DR PO SCH ×3 (08:00→17:39)
[2020-07-25] MEDS: GLUCERNA SHAKE 237 ML CAN PO SCH ×2 (08:00→17:30)
[2020-07-25] MEDS: METFORMIN 500 MG TABLET PO SCH ×2 (09:08→17:29)
[2020-07-25] MEDS: LISINOPRIL (20MG) 20 MG TABLET PO SCH (09:09)
[2020-07-25] MEDS: OLANZAPINE ZYDIS 5 MG TAB.RAPDIS PO SCH ×2 (09:09→21:24)
[2020-07-25] MEDS: BENZTROPINE MESYLATE (1 MG) 1 MG TABLET PO SCH ×2 (09:09→17:31)
[2020-07-25] MEDS: DIVALPROEX SODIUM 125 MG CAP.SPRINK PO SCH ×2 (09:09→21:03)
[2020-07-25] MEDS: NITROGLYCERIN 30 GM TUBE TP SCH (09:12)
[2020-07-25] MEDS: INSULIN REGULAR, HUMAN 100 UNIT/ML 3 ML VIAL SQ PRN ×2 (09:14→18:14)
[2020-07-25 16:00] VITALS: BP 151/84
[2020-07-25] MEDS: SIMVASTATIN 20 MG TABLET PO SCH (17:39)
[2020-07-25 20:43] VITALS: BP 158/87
[2020-07-26 08:00] VITALS: BP 125/67
[2020-07-26] MEDS: BLOOD SUGAR DIAGNOSTIC 1 EACH STRIP IN SCH ×4 (08:21→21:26)
[2020-07-26] MEDS: LIPASE/PROTEASE/AMYLASE 1 EACH CAPSULE.DR PO SCH ×3 (08:21→17:03)
[2020-07-26] MEDS: DIVALPROEX SODIUM 125 MG CAP.SPRINK PO SCH ×2 (08:21→21:26)
[2020-07-26] MEDS: OLANZAPINE ZYDIS 5 MG TAB.RAPDIS PO SCH ×2 (08:22→21:27)
[2020-07-26] MEDS: METFORMIN 500 MG TABLET PO SCH ×2 (08:22→17:03)
[2020-07-26] MEDS: LISINOPRIL (20MG) 20 MG TABLET PO SCH (08:22)
[2020-07-26] MEDS: NITROGLYCERIN 30 GM TUBE TP SCH (08:23)
[2020-07-26] MEDS: GLUCERNA SHAKE 237 ML CAN PO SCH ×2 (08:23→16:50)
[2020-07-26] MEDS: BENZTROPINE MESYLATE (1 MG) 1 MG TABLET PO SCH ×2 (08:26→17:04)
[2020-07-26] MEDS: INSULIN REGULAR, HUMAN 100 UNIT/ML 3 ML VIAL SQ PRN (08:29)
--- NOTE | 2020-07-26 11:49 | NUR ---
GPS RN NOTE PATIENTS BLOOD SUGAR IS 58, PATIENT IS EATING LUNCH, GAVE ORANGE JUICE, APPLE JUICE AND SWEET PUDDING. WILL RECHECK BLOOD SUGAR AFTER THE FOOD.
--- NOTE | 2020-07-26 12:10 | NUR ---
GPS NOTE RECHECKED PATIENTS BLOOD SUGAR AFTER 15MIN, WENT UP TO 63. WILL CONTINUE TO MONITOR AND GIVE ORANGE JUICE.
--- NOTE | 2020-07-26 12:20 | NUR ---
DPOA Contact: CUCO called the pts daughter/DPOA, Amanda ([phone]), and she stated that she will be flying down the next day and wanted to meet with the SW around 10:30am to inform the pt about his options for treatment and the reasoning behind the decisions that are being made. SW agreed to this meeting.
--- NOTE | 2020-07-26 12:31 | NUR ---
SNF Referral: CUCO faxed a referral to [facility] with attn to Blanche to the fax number: [phone].
[2020-07-26 16:00] VITALS: BP 129/65
[2020-07-26] MEDS: SIMVASTATIN 20 MG TABLET PO SCH (17:03)
[2020-07-26 20:00] VITALS: BP 143/77
--- NOTE | 2020-07-26 21:40 | NUR ---
RN NOTE BLOOD SUGAR IS 121, NO COVERAGE NEEDED
[2020-07-27] MEDS: ACETAMINOPHEN 325 MG TABLET PO PRN (05:26)
[2020-07-27] MEDS: MAG HYDROX/AL HYDROX/SIMETH 30 ML UDC PO PRN (05:26)
[2020-07-27 08:00] VITALS: BP 149/81
[2020-07-27] MEDS ORDERED: BENZTROPINE MESYLATE (1 MG) 1 MG TABLET PO PRN (09:30)
[2020-07-27] MEDS: BLOOD SUGAR DIAGNOSTIC 1 EACH STRIP IN SCH ×4 (09:33→21:19)
[2020-07-27] MEDS: GLUCERNA SHAKE 237 ML CAN PO SCH ×2 (09:34→17:40)
[2020-07-27] MEDS: LIPASE/PROTEASE/AMYLASE 1 EACH CAPSULE.DR PO SCH ×3 (09:35→17:41)
[2020-07-27] MEDS: OLANZAPINE ZYDIS 5 MG TAB.RAPDIS PO SCH ×2 (09:36→21:19)
[2020-07-27] MEDS: NITROGLYCERIN 30 GM TUBE TP SCH (09:36)
[2020-07-27] MEDS: METFORMIN 500 MG TABLET PO SCH ×2 (09:36→17:40)
[2020-07-27] MEDS: LISINOPRIL (20MG) 20 MG TABLET PO SCH (09:37)
--- NOTE | 2020-07-27 13:05 | NUR ---
DPOA Meeting: CUCO met with the pts daughter/DPOA, Amanda ([phone]), with the pts MD, Dr. Rodriguez. The pts discharge plan was discussed at length and it was discussed that the pt will receive a CT scan. It was discussed that the pts daughter has a facility in mind near his home that the pts outpatient MD can attend and follow up with the pt. Daughter stated that the facility wants a report that the pt takes his medication orally and SW stated that she will send that information. Pts daughter and SW then spoke with the pt and reinforced that he needs to be compliant with his medications.
[2020-07-27 16:00] VITALS: BP 140/89
[2020-07-27] MEDS: SIMVASTATIN 20 MG TABLET PO SCH (17:41)
[2020-07-27 19:42] VITALS: BP 158/87
[2020-07-27] MEDS: DIVALPROEX SODIUM 125 MG CAP.SPRINK PO SCH (20:44)
[2020-07-27 21:30] VITALS: BP 135/82
[2020-07-28 08:00] VITALS: BP 142/71
[2020-07-28] MEDS: GLUCERNA SHAKE 237 ML CAN PO SCH ×2 (08:04→16:54)
[2020-07-28] MEDS: LIPASE/PROTEASE/AMYLASE 1 EACH CAPSULE.DR PO SCH ×3 (08:04→17:01)
[2020-07-28] MEDS: BLOOD SUGAR DIAGNOSTIC 1 EACH STRIP IN SCH ×4 (08:04→22:02)
[2020-07-28] MEDS: METFORMIN 500 MG TABLET PO SCH ×2 (08:04→16:54)
[2020-07-28] MEDS: DIVALPROEX SODIUM 125 MG CAP.SPRINK PO SCH ×2 (08:04→20:48)
[2020-07-28] MEDS: LISINOPRIL (20MG) 20 MG TABLET PO SCH (08:04)
[2020-07-28] MEDS: NITROGLYCERIN 30 GM TUBE TP SCH (08:05)
[2020-07-28] MEDS: OLANZAPINE ZYDIS 5 MG TAB.RAPDIS PO SCH ×2 (08:05→20:49)
[2020-07-28] MEDS: ACETAMINOPHEN 325 MG TABLET PO PRN (11:56)
[2020-07-28 16:00] VITALS: BP 109/63
[2020-07-28] MEDS: SIMVASTATIN 20 MG TABLET PO SCH (17:01)
[2020-07-28 20:00] VITALS: BP 112/70
[2020-07-28] MEDS: TEMAZEPAM 7.5 MG CAPSULE PO PRN (20:49)
[2020-07-29] MEDS: BLOOD SUGAR DIAGNOSTIC 1 EACH STRIP IN SCH ×4 (07:15→22:04)
[2020-07-29] MEDS: LIPASE/PROTEASE/AMYLASE 1 EACH CAPSULE.DR PO SCH ×3 (07:48→17:08)
[2020-07-29] MEDS: GLUCERNA SHAKE 237 ML CAN PO SCH ×2 (07:49→16:13)
[2020-07-29 08:00] VITALS: BP 145/71
[2020-07-29] MEDS: NITROGLYCERIN 30 GM TUBE TP SCH (08:27)
[2020-07-29] MEDS: LISINOPRIL (20MG) 20 MG TABLET PO SCH (08:29)
[2020-07-29] MEDS: METFORMIN 500 MG TABLET PO SCH ×2 (08:29→17:07)
[2020-07-29] MEDS: DIVALPROEX SODIUM 125 MG CAP.SPRINK PO SCH ×2 (08:29→21:37)
[2020-07-29] MEDS: OLANZAPINE ZYDIS 5 MG TAB.RAPDIS PO SCH ×2 (08:30→21:37)
--- NOTE | 2020-07-29 09:13 | NUR ---
SNF Referral: CUCO faxed a referral to the [facility] with attn to Keily to the fax number: [phone].
--- NOTE | 2020-07-29 09:14 | NUR ---
SNF Referral: CUCO faxed a referral to [facility] with attn to Deisy to the fax number: [phone].
--- NOTE | 2020-07-29 09:57 | NUR ---
DPOA Contact: CUCO called the pts daughter/DPOA, Amanda ([phone]), and discussed the referrals being sent. Pts daughter stated that she will follow up with the facilities.
[2020-07-29] MEDS: INSULIN REGULAR, HUMAN 100 UNIT/ML 3 ML VIAL SQ PRN (11:22)
[2020-07-29 16:00] VITALS: BP 121/64
[2020-07-29] MEDS: SIMVASTATIN 20 MG TABLET PO SCH (17:08)
--- NOTE | 2020-07-29 17:08 | NUR ---
RN-CO: PATIENT REFUSED ACC CHECK PT STATED " IT IS NOT GOOD ANYMORE BECAUSE I JUST ATE CRACKERS AND ORANGE JUICE."
[2020-07-29 19:35] VITALS: BP 125/67
--- NOTE | 2020-07-30 06:42 | NUR ---
GPS RN CLOSING NOTES: PATIENT IS AWAKE, A/O X2, AMBULATING IN HALLWAY. PATIENT SLEPT 4HRS THIS SHIFT. PATIENT WAS MED COMPLIANT THIS SHIFT. NO BEHAVIORAL ISSUES THIS SHIFT. NO S/S OF DISTRESS. RESPIRATION EVEN AND UNLABORED WITH EQUAL RISE AND FALL OF THE CHEST, ON ROOM AIR. ALL PATIENT CARE NEEDS HAVE BEEN MET ANTICIPATED. WILL CONTINUE TO MONITOR FOR SAFETY, MOOD AND BEHAVIOR AND ENDORSE TO AM SHIFT.
[2020-07-30] MEDS: BLOOD SUGAR DIAGNOSTIC 1 EACH STRIP IN SCH ×4 (07:27→21:20)
[2020-07-30 08:00] VITALS: BP 137/63
[2020-07-30] MEDS: LIPASE/PROTEASE/AMYLASE 1 EACH CAPSULE.DR PO SCH ×3 (08:39→17:14)
[2020-07-30] MEDS: OLANZAPINE ZYDIS 5 MG TAB.RAPDIS PO SCH ×2 (08:40→21:36)
[2020-07-30] MEDS: METFORMIN 500 MG TABLET PO SCH ×2 (08:40→17:14)
[2020-07-30] MEDS: DIVALPROEX SODIUM 125 MG CAP.SPRINK PO SCH ×2 (08:40→21:13)
[2020-07-30] MEDS: LISINOPRIL (20MG) 20 MG TABLET PO SCH (08:40)
[2020-07-30] MEDS: GLUCERNA SHAKE 237 ML CAN PO SCH ×2 (08:48→17:15)
[2020-07-30] MEDS: NITROGLYCERIN 30 GM TUBE TP SCH (08:57)
--- NOTE | 2020-07-30 11:42 | NUR ---
DPOA Contact: CUCO called the pts daughter/DPOA, Amanda ([phone]), and left a voicemail stating that she would like to follow up on the pts discharge.
[2020-07-30 16:06] VITALS: BP 119/67
[2020-07-30] MEDS: SIMVASTATIN 20 MG TABLET PO SCH (17:14)
[2020-07-30 20:02] VITALS: BP 119/63
[2020-07-30 20:14] VITALS: BP 119/63
[2020-07-31 06:41] LABS: BASOPHILS # (AUTO) 0.1 /CMM (0.0-0.2); BASOPHILS % (AUTO) 1.1 % (0.0-2.0); EOSINOPHILS % (AUTO) 5.1 % (0.0-6.0); HEMATOCRIT 34 % (39-51); HEMOGLOBIN 11.6 g/dL (13.5-17.5); LYMPHOCYTES # (AUTO) 1.4 /CMM (0.8-4.8); LYMPHOCYTES % (AUTO) 19.5 % (20.0-44.0); MEAN CORPUSCULAR HGB CONC 34 g/dl (31.0-36.0); MEAN CORPUSCULAR VOLUME 92 fL (80-96); MONOCYTES # (AUTO) 0.8 /CMM (0.1-1.30); MONOCYTES % (AUTO) 10.3 % (2.0-12.0); NEUTROPHILS # (AUTO) 4.7 /CMM (1.8-8.9); PLATELET COUNT (AUTO) 240 /CMM (150-450); RED BLOOD CELL COUNT(AUTO) 3.76 MIL/uL (4.5-6.0); WHITE BLOOD COUNT (AUTO) 7.3 K/uL (4.3-11.0)
[2020-07-31 07:20] LABS: ALBUMIN 3.1 g/dL (3.4-5.0); BILIRUBIN,TOTAL 0.3 mg/dL (0.2-1.0); CALCIUM, SERUM 8.4 mg/dL (8.5-10.1); CREATININE 0.8 mg/dL (0.6-1.3); POTASSIUM 4.6 mmol/L (3.5-5.1); TOTAL PROTEIN, SERUM 6.1 g/dL (6.4-8.2)
[2020-07-31] MEDS: BLOOD SUGAR DIAGNOSTIC 1 EACH STRIP IN SCH ×4 (07:51→22:00)
[2020-07-31] MEDS: LIPASE/PROTEASE/AMYLASE 1 EACH CAPSULE.DR PO SCH ×3 (07:56→17:38)
[2020-07-31] MEDS: LISINOPRIL (20MG) 20 MG TABLET PO SCH (07:57)
[2020-07-31] MEDS: METFORMIN 500 MG TABLET PO SCH ×2 (07:57→17:38)
[2020-07-31] MEDS: DIVALPROEX SODIUM 125 MG CAP.SPRINK PO SCH ×4 (07:57→21:43)
[2020-07-31 08:00] VITALS: BP 147/77
[2020-07-31] MEDS: GLUCERNA SHAKE 237 ML CAN PO SCH ×2 (08:35→17:36)
[2020-07-31] MEDS: NITROGLYCERIN 30 GM TUBE TP SCH (08:37)
[2020-07-31] MEDS: INSULIN REGULAR, HUMAN 100 UNIT/ML 3 ML VIAL SQ PRN (08:41)
[2020-07-31] MEDS: OLANZAPINE ZYDIS 5 MG TAB.RAPDIS PO SCH ×3 (08:42→22:20)
--- NOTE | 2020-07-31 09:21 | NUR ---
GPS/RN PT REFUSED DEPAKOTE AND SHARONA OFFERED X3.
--- NOTE | 2020-07-31 12:21 | NUR ---
GPS/RN DR HAYES ASSESSED THE PT. PT AGREED TO TAKE EMELY AND SHARONA
[2020-07-31 16:00] VITALS: BP 124/61
[2020-07-31] MEDS: SIMVASTATIN 20 MG TABLET PO SCH (17:38)
[2020-07-31 19:59] VITALS: BP 142/75
[2020-07-31 20:00] VITALS: BP 142/75
--- NOTE | 2020-07-31 22:24 | NUR ---
RN NOTE PATIENT REFUSED ACCU CHECK X 3 DESPITE OF RISKS & BENEFITS EXPLANATIONS.
[2020-08-01] MEDS: BLOOD SUGAR DIAGNOSTIC 1 EACH STRIP IN SCH ×4 (07:30→22:02)
[2020-08-01 08:00] VITALS: BP 142/74
[2020-08-01] MEDS: GLUCERNA SHAKE 237 ML CAN PO SCH ×2 (08:07→17:02)
[2020-08-01] MEDS: METFORMIN 500 MG TABLET PO SCH ×2 (08:49→17:04)
[2020-08-01] MEDS: DIVALPROEX SODIUM 125 MG CAP.SPRINK PO SCH ×2 (08:51→21:02)
[2020-08-01] MEDS: LIPASE/PROTEASE/AMYLASE 1 EACH CAPSULE.DR PO SCH ×3 (08:51→17:04)
[2020-08-01] MEDS: LISINOPRIL (20MG) 20 MG TABLET PO SCH (08:52)
[2020-08-01] MEDS: OLANZAPINE ZYDIS 5 MG TAB.RAPDIS PO SCH ×2 (08:52→21:02)
[2020-08-01] MEDS: NITROGLYCERIN 30 GM TUBE TP SCH (08:53)
[2020-08-01 16:00] VITALS: BP 138/76
[2020-08-01] MEDS: SIMVASTATIN 20 MG TABLET PO SCH (17:04)
--- NOTE | 2020-08-01 20:00 | NUR ---
GPS-RN NOTES: PATIENT REFUSED WEEKLY SKIN ASSESSMENT.
[2020-08-01 20:10] VITALS: BP 150/76
[2020-08-02 08:00] VITALS: BP 155/85
[2020-08-02] MEDS: INSULIN REGULAR, HUMAN 100 UNIT/ML 3 ML VIAL SQ PRN (08:00)
[2020-08-02] MEDS: DIVALPROEX SODIUM 125 MG CAP.SPRINK PO SCH ×2 (08:15→21:20)
[2020-08-02] MEDS: LIPASE/PROTEASE/AMYLASE 1 EACH CAPSULE.DR PO SCH ×3 (08:15→18:31)
[2020-08-02] MEDS: LISINOPRIL (20MG) 20 MG TABLET PO SCH (08:16)
[2020-08-02] MEDS: OLANZAPINE ZYDIS 5 MG TAB.RAPDIS PO SCH ×2 (08:16→21:20)
[2020-08-02] MEDS: METFORMIN 500 MG TABLET PO SCH ×2 (08:16→17:32)
[2020-08-02] MEDS: BLOOD SUGAR DIAGNOSTIC 1 EACH STRIP IN SCH ×4 (08:17→21:29)
[2020-08-02] MEDS: GLUCERNA SHAKE 237 ML CAN PO SCH ×2 (08:17→17:33)
[2020-08-02] MEDS: NITROGLYCERIN 30 GM TUBE TP SCH (08:26)
--- NOTE | 2020-08-02 12:59 | NUR ---
DPOA Contact: CUCO called the pts daughter/DPOA, Amanda ([phone]), to return her voicemail. Pts daughter stated that she wanted to speak to the MD about some questions that she has about the pts medical condition and then stated that she would like to know the reasoning behind SNF and a long acting shot that the previous MD had wanted and why it is not being pushed right now. CUCO stated that the hospital step down is usually SNF but per the conversation with pts MD the pt can go home if there is proper care. Pts daughter stated that she wants the pt in a SNF temporarily and then the pt can return to his home. SW stated that she will continue to work together regarding placement.
--- NOTE | 2020-08-02 15:59 | NUR ---
SNF Referral: CUCO faxed a referral to the following two facilities: [facility] to the fax number: [phone] [facility] to the fax number: [phone].
[2020-08-02 16:00] VITALS: BP 127/71
[2020-08-02] MEDS: SIMVASTATIN 20 MG TABLET PO SCH (18:31)
[2020-08-02 20:00] VITALS: BP 140/73
[2020-08-03] MEDS: MAG HYDROX/AL HYDROX/SIMETH 30 ML UDC PO PRN
[2020-08-03] MEDS: TEMAZEPAM 7.5 MG CAPSULE PO PRN (00:01)
--- NOTE | 2020-08-03 00:02 | NUR ---
GPS RN NOTES: PATIENT REQUESTED FOR SLEEP MEDICATION. RESTORIL 7.5MG/1TAB GIVEN PO PRN AT 0001. WILL CONTINUE TO MONITOR.
--- NOTE | 2020-08-03 00:03 | NUR ---
GPS RN NOTES: PATIENT C/O INDIGESTION. MAALOX 30ML GIVEN PO PRN AT 0000. WILL CONTINUE TO MONITOR.
--- NOTE | 2020-08-03 07:03 | NUR ---
GPS RN CLOSING NOTES: PATIENT IS AWAKE, A/O X1-2. AMBULATING IN HALLWAY. PATIENT SLEPT 9HR THIS SHIFT. NO S/S OF DISTRESS. RESPIRATION EVEN AND UNLABORED WITH EQUAL RISE AND FALL OF THE CHEST ON ROOM AIR. ALL PATIENT CARE NEEDS HAVE BEEN MET ANTICIPATED. WILL CONTINUE TO MONITOR FOR SAFETY, MOOD AND BEHAVIOR AND ENDORSE TO AM SHIFT.
[2020-08-03] MEDS: BLOOD SUGAR DIAGNOSTIC 1 EACH STRIP IN SCH ×4 (07:30→21:47)
[2020-08-03 08:00] VITALS: BP 137/71
[2020-08-03] MEDS: GLUCERNA SHAKE 237 ML CAN PO SCH ×2 (08:59→17:54)
[2020-08-03] MEDS: LIPASE/PROTEASE/AMYLASE 1 EACH CAPSULE.DR PO SCH ×3 (09:02→17:56)
[2020-08-03] MEDS: OLANZAPINE ZYDIS 5 MG TAB.RAPDIS PO SCH ×2 (09:02→21:33)
[2020-08-03] MEDS: METFORMIN 500 MG TABLET PO SCH ×2 (09:02→17:56)
[2020-08-03] MEDS: DIVALPROEX SODIUM 125 MG CAP.SPRINK PO SCH ×2 (09:02→21:33)
[2020-08-03] MEDS: LISINOPRIL (20MG) 20 MG TABLET PO SCH (09:03)
[2020-08-03] MEDS: NITROGLYCERIN 30 GM TUBE TP SCH (09:06)
--- NOTE | 2020-08-03 13:15 | NUR ---
DPOA Contact: SW called the pts daughter/DPOA, Amanda ([phone]), and left a voicemail stating that the SW wanted an update.
--- NOTE | 2020-08-03 15:37 | NUR ---
SNF Referral: CUCO faxed updated notes to [facility] with attn to Blanche to the fax number: [phone].
--- NOTE | 2020-08-03 15:39 | NUR ---
DPOA Contact: SW called the pts daughter/DPOA, Amanda ([phone]), and left a voicemail stating that the SW wanted an update.
[2020-08-03 15:55] VITALS: BP 147/82
[2020-08-03] MEDS: SIMVASTATIN 20 MG TABLET PO SCH (17:56)
[2020-08-03 20:00] VITALS: BP 107/53
[2020-08-04] MEDS: BLOOD SUGAR DIAGNOSTIC 1 EACH STRIP IN SCH ×2 (07:30→11:39)
[2020-08-04 08:00] VITALS: BP 135/76
[2020-08-04] MEDS: LISINOPRIL (20MG) 20 MG TABLET PO SCH (08:11)
[2020-08-04] MEDS: OLANZAPINE ZYDIS 5 MG TAB.RAPDIS PO SCH (08:11)
[2020-08-04] MEDS: LIPASE/PROTEASE/AMYLASE 1 EACH CAPSULE.DR PO SCH ×2 (08:11→12:10)
[2020-08-04 08:12] VITALS: BP 135/76
[2020-08-04] MEDS: METFORMIN 500 MG TABLET PO SCH (08:12)
[2020-08-04] MEDS: DIVALPROEX SODIUM 125 MG CAP.SPRINK PO SCH (08:12)
[2020-08-04] MEDS: NITROGLYCERIN 30 GM TUBE TP SCH (08:12)
[2020-08-04] MEDS: GLUCERNA SHAKE 237 ML CAN PO SCH (08:12)
--- NOTE | 2020-08-04 08:58 | NUR ---
Discharge Note: Pt will be discharged to [facility] (SNF) located at [address] [place] [id number]; ([phone]). Pt will be transported via the facility pickup around 3pm. Pts daughter/DPOA, Amanda ([phone]), has been informed. Upon discharge, the pt appears to be in a euthymic mood and presents with a calm affect. Pt appears to be alert and oriented x4 (time, place, self and situation). Pt denies both suicidal and homicidal ideation as well as auditory and visual hallucinations. Pt appears to be ungroomed and appears to be ambulatory with a steady gait. Pt will be under the care of his psychiatrist, Dr. Swann, located at [address] [place] [address]; and pelts skinner, Dr. Alvarez, located at [address] [place] [address] [address], [place] [address]; . Pt signed the Choice of Vendor and the multidisciplinary exit care form was signed, completed, and a copy was given to the pt.
--- NOTE | 2020-08-04 14:39 | NUR ---
GPS WEATHER FORECASTER NOTE: MALE PATIENT DISCHARGE TO [facility] located at [address] [place] [address]; ([phone]). . Pts daughter/DPOA, Amanda ([phone]), has been informed. Upon discharge, the pt appears to be in a euthymic mood and presents with a calm affect. Pt appears to be alert and oriented x4 no s/s distress noted , calm cooperative .Bs 102 ,vss. Pt denies both suicidal and homicidal ideation as well as auditory and visual hallucinations. Pt will be under the care of his psychiatrist, Dr. Swann, located at [address] [place] [address]; and felt hat flanging operator, Dr. Alvarez, located at [address] [place] [address] [address], [place] [address]; . All belongings given to patient valuables taken by daughter on 07/27/20. Repost given to facility rn .
== END 2020-08-04 14:30 | DRG 885 ==
LOC: GPS 17:38
PROVIDERS: ADMIT Psychiatry & Neurology Psychiatry; ATTEND Registered Nurse
DX: F39 Unspecified mood [affective] disorder (principal); F01.50 Vascular dementia, unspecified severity, without behavioral disturbance, psychotic disturbance, mood disturbance, and anxiety; F29 Unspecified psychosis not due to a substance or known physiological condition; F41.9 Anxiety disorder, unspecified; E11.51 Type 2 diabetes mellitus with diabetic peripheral angiopathy without gangrene; F03.90 Unspecified dementia, unspecified severity, without behavioral disturbance, psychotic disturbance, mood disturbance, and anxiety; I10 Essential (primary) hypertension; E78.5 Hyperlipidemia, unspecified; Z20.822 Contact with and (suspected) exposure to COVID-19; Z73.6 Limitation of activities due to disability; I73.00 Raynaud's syndrome without gangrene; Z79.84 Long term (current) use of oral hypoglycemic drugs
CPT/HCPCS: 36415; 70450-TC; 80048-TC; 80053-TC; 80061-TC; 82962-TC; 85025-TC; J1200; J1630; J1815; J2060

== ENCOUNTER 2021-01-24 12:27 | Inpatient (IN) | payer MEDICARE, BC ==
[~2021-01-24] VITALS: Ht 185.4 cm; Wt 71.7 kg
[~2021-01-24 12:27] MED LIST: AMYL1CAP54 PO; CITA10TA9 PO; LISI20TA30 PO; LOPE2CAP PO; LORA-259 PO; METF-440 PO; SIMV-46 PO
[2021-01-24] MEDS ORDERED: ACETAMINOPHEN 325 MG TABLET PO PRN (22:30)
[2021-01-24] MEDS ORDERED: LORAZEPAM 0.5 MG TABLET PO PRN (22:30)
[2021-01-24] MEDS ORDERED: BLOOD SUGAR DIAGNOSTIC 1 EACH STRIP IN ONE (22:30)
[2021-01-24] MEDS ORDERED: MAG HYDROX/AL HYDROX/SIMETH 30 ML UDC PO PRN (22:30)
[2021-01-24] MEDS ORDERED: MAGNESIUM HYDROXIDE 30 ML UDC PO PRN (22:30)
--- NOTE | 2021-01-24 23:48 | NUR ---
GPS SPECIAL FORCES SENIOR SERGEANT NOTES: PATIENT ARRIVED THIS UNIT ON A W/C WITH AN ESCORT AT 2145. PATIENT IS ON A 5150 HOLD PLACED 01/22/21 @ 16:15. PER HOLD, PATIENT WAS BROUGHT INTO [facility] BY HIS DAUGHTER WHO REPORTED PATIENT HAS BEEN EXPERIENCING INCREASED DEPRESSION FOR ABOUT 6 WEEKS, HAS BEEN CATATONIC, MANIC, VOICING AND SUICIDAL IDEATION. PATIENT IS ALSO UNABLE TO ANSWER HOW TO KEEP HIMSELF SAFE AT [place], NOT EATING, OR SLEEPING AND HAVING THOUGHTS OF "NOT WANTING TO LIVE". PER PATIENT "MY THOUGHTS ARE ALL MIXED UP". UPON FACE TO FACE EVALUATION, PATIENT IS A/O X1, CONFUSED, DISORGANIZED, FORGETFUL, LOOSE ASSOCIATIONS BUT ABLE TO FOLLOW DIRECTION. NO S/S OF DISTRESS. RESPIRATION EVEN AND UNLABORED WITH EQUAL RISE AND FALL OF THE CHEST, ON ROOM AIR. PATIENT WAS UNABLE TO SIGN ADMISSION PAPERWORK, SKIN ASSESSMENT DONE, SKIN IS INTACT. ACCU CHEK DONE, BS 127MG/DL, MRSA SWAP BOTH NARES DONE AND SENT TO THE LAB. PATIENT IS UNDER THE PSYCHIATRIC CARE OF DR HAYES AND MEDICAL CARE OF HEATH RITTER. PATIENT OFFERED FLUID AND SNACKS TOLERATED. PATIENT HAS NO NEEDS AT THIS TIME. BED IN LOWEST POSITION AND LOCKED, SIDE RAILS UP X 2 FOR SAFETY. BED ALARM ON. CALL EDMOND WITHIN REACH. WILL CONTINUE TO MONITOR Q15 MINS FOR MOOD, SAFETY AND BEHAVIOR.
[2021-01-25] VITALS (10 sets, daily range): BP systolic 76–197; BP diastolic 42–112
[2021-01-25] MEDS: ZOLPIDEM TARTRATE 5 MG TABLET PO PRN ×2 (00:07→21:39)
[2021-01-25] MEDS ORDERED: OLAN2.5T3 PO (00:23)
[2021-01-25] MEDS ORDERED: LOPERAMIDE HCL (2 MG CAP) 2 MG CAPSULE PO PRN (02:30)
--- NOTE | 2021-01-25 05:22 | NUR ---
GPS RN NOTES: DR SALDANA ORDERED TO DISCONTINUE ZYPREXA ORDER.
[2021-01-25 07:52] LABS: CHOLESTEROL 130 mg/dL (<200); HDL CHOLESTEROL 64 mg/dL (40-60); LDL 48 mg/dL (0-99); TRIGLYCERIDES 86 mg/dL (30-150)
[2021-01-25 07:55] LABS: ALBUMIN 3.3 g/dL (3.4-5.0); BILIRUBIN,TOTAL 0.6 mg/dL (0.2-1.0); CALCIUM, SERUM 8.7 mg/dL (8.5-10.1); TOTAL PROTEIN, SERUM 6.6 g/dL (6.4-8.2)
[2021-01-25] MEDS: METFORMIN 500 MG TABLET PO SCH ×2 (08:16→17:52)
[2021-01-25] MEDS: LIPASE/PROTEASE/AMYLASE 1 EACH CAPSULE.DR PO SCH ×3 (08:16→17:52)
[2021-01-25] MEDS ORDERED: LISINOPRIL (20MG) 20 MG TABLET PO SCH (09:00)
[2021-01-25] MEDS ORDERED: CITALOPRAM HYDROBROMIDE 10 MG TABLET PO SCH (09:00)
--- NOTE | 2021-01-25 10:26 | NUR ---
[facility] Initial Discharge Plan: Patient lives at home lcoated at [address], [place] [address]; ([phone]). Patient reported that he has an employee that helps at the house. Pt would want to return back home upon dc. [facility]CO will work with the treatment team, family, and MD to help coordinate appropriate discharge.
[2021-01-25] MEDS: GLUCERNA SHAKE 237 ML CAN PO SCH ×2 (10:30→17:09)
[2021-01-25 11:03] LABS: THYROID STIMULATING HORMONE 1.149 uIU/mL (0.358-3.74)
--- NOTE | 2021-01-25 11:16 | NUR ---
CUCO Family Contact: CUCO spoke with patient's daughter Amanda ([phone]) who stated that she is the DPOA. Amanda will send this parts data writer documents. Amanda stated that pt has been here at the hospital before under the care of Dr. Rodriguez. Amanda reported that pt lives at home that helps minimally. Amanda stated that she would want this SW to find pt a nursing facility. Amanda preferably would want pt to go to [facility] as pt has been here before. [facility]CO will fax clinicals once updated on [employer].
--- NOTE | 2021-01-25 11:24 | NUR ---
[facility] SNF Referral: CUCO faxed clinicals to Blanche Martinez from [facility] ([phone]) (F:[phone]) for placement option. CUCO sent H & P notes, progress notes, and medication list.
--- NOTE | 2021-01-25 13:57 | NUR ---
DPOA and Advance Directive: Patient's daughter DPOA Amanda sent Uniform Power of Field Merchandiser, Limited Power of Field Merchandiser and Conservatorship, the Advanced Medical Directive and a copy of our [place]. CUCO placed in patient's chart.
--- NOTE | 2021-01-25 14:04 | NUR ---
SW Family Contact: SW spoke with patient's daughter MATTEO Patel ([phone]) and notified that pt is accepted at [facility] and she is agreeable with this placement. However, she stated she is searching into another facility called [facility] and will notify this SW if clinicals need to be sent.
--- NOTE | 2021-01-25 14:04 | NUR ---
[facility]CO [facility] Contact: CUCO faxed clinicals to Blanche Martinez from [facility] ([phone]) (F:[phone]) who stated pt is accepted.
--- NOTE | 2021-01-25 14:28 | NUR ---
[facility] Note: SW met with patient for individual counseling. Pt appeared to be guarded and presented with a flat affect. Pt did not want to have a conversation at this time.
--- NOTE | 2021-01-25 16:15 | NUR ---
DR ANTHONY CONTACTED PT'S BP WAS 175/15. THERE WAS NO ORDER FOR PRN MEDS. DR ANTHONY ORDERED CLONIDINE 0.1MG Q6HR PRN AND INCREASED THE FREQUENCY OF THE LISINOPRIL TO BID. WILL CONTINUE TO MONITOR.
[2021-01-25] MEDS: CLONIDINE HCL 0.1 MG TABLET PO PRN ×2 (16:24→21:39)
--- NOTE | 2021-01-25 16:30 | NUR ---
CLONIDINE 0.1MG GIVEN ORDERED. WILL CONTINUE TO MONITOR.
[2021-01-25] MEDS: SIMVASTATIN 20 MG TABLET PO SCH (17:52)
[2021-01-25] MEDS: LISINOPRIL (20MG) 20 MG TABLET PO SCH (17:53)
[2021-01-25] MEDS ORDERED: OLANZAPINE 2.5 MG TABLET PO SCH (18:00)
--- NOTE | 2021-01-25 18:28 | NUR ---
PT'S BP 168/108. LISINOPRIL GIVEN SCHEDULED. WILL CONTINUE TO MONITOR.
--- NOTE | 2021-01-25 18:50 | NUR ---
bp 165/113 hr 109. Informed Nocs charge nurse and relieving noc nurse for strict monitoring.
[2021-01-25] MEDS: LITHIUM CARBONATE 150 MG CAPSULE PO SCH (21:12)
[2021-01-25] MEDS: OLANZAPINE 2.5 MG TABLET PO SCH (21:12)
[2021-01-26] VITALS (7 sets, daily range): BP systolic 111–196; BP diastolic 74–112
--- NOTE | 2021-01-26 05:19 | NUR ---
RN GPS NOTE: DID ROUTINE VITAL SIGN CHECK ON PATIENT WITH FREQUENT BP CHECK SINCE PATIENT IS ON, WITH A BP READING OF 159/112 AT 2004. NOTIFIED CHARGE NURSE. WENT TO REDO BP AT 2122 WITH A READING OF 184/105. ADMINISTERED PRN CLONIDINE 0.1 MG. CAME BACK TO REDO BP AT 2237 WITH A READING OF 76/42. NOTIFIED CHARGE NURSE. OFFERED WATER AND JUICE TO DRINK. REDID BP AT 2311 WITH A READING OF 163/84. WILL CONTINUE TO CLOSLEY MONITOR PATIENT Q15 MINUTES FOR SAFETY.
[2021-01-26] MEDS: GLUCERNA SHAKE 237 ML CAN PO SCH ×2 (07:40→16:51)
[2021-01-26] MEDS: LIPASE/PROTEASE/AMYLASE 1 EACH CAPSULE.DR PO SCH ×3 (07:41→17:53)
[2021-01-26] MEDS: CLONIDINE HCL 0.1 MG TABLET PO PRN ×2 (07:42→20:03)
--- NOTE | 2021-01-26 07:45 | NUR ---
CLONIDINE PRN GIVEN. BP 161/112. WILL CONTINUE TO MONITOR.
[2021-01-26] MEDS: LISINOPRIL (20MG) 20 MG TABLET PO SCH ×2 (09:00→16:17)
--- NOTE | 2021-01-26 09:05 | NUR ---
BP 111/74. WILL INFORM
--- NOTE | 2021-01-26 09:31 | NUR ---
SCHEDULED LISINOPRIL 20MG HELD BY DR RAJ FELDMAN.
[2021-01-26] MEDS: LITHIUM CARBONATE 150 MG CAPSULE PO SCH ×2 (09:34→21:20)
[2021-01-26] MEDS: METFORMIN 500 MG TABLET PO SCH ×2 (09:34→17:52)
--- NOTE | 2021-01-26 13:41 | NUR ---
[facility] Referral Contact: CUCO received a call from Blanche admin from [facility] stating [facility] is another facility they work with and has accepted pt. Blanche expressed she is unsure if they will have bed available upon dc but have availability at [facility]. She expressed she will find out if upon dc [facility] will take pt. CUCO notified daughter Amanda FELIPE of this.
--- NOTE | 2021-01-26 17:49 | NUR ---
BP 1555/80 HR 102
[2021-01-26] MEDS: SIMVASTATIN 20 MG TABLET PO SCH (17:53)
[2021-01-26] MEDS: OLANZAPINE 2.5 MG TABLET PO SCH (21:19)
[2021-01-26] MEDS: ZOLPIDEM TARTRATE 5 MG TABLET PO PRN (22:08)
--- NOTE | 2021-01-26 22:08 | NUR ---
GPS-RN NOTES: INSOMNIA PATIENT UNABLE TO SLEEP. PRN AMBIEN 5MG PO GIVEN ORDERED. WILL CONTINUE TO MONITOR.
[2021-01-27] MEDS: CLONIDINE HCL 0.1 MG TABLET PO PRN (07:35)
[2021-01-27 08:00] VITALS: BP 180/94
[2021-01-27] MEDS: LIPASE/PROTEASE/AMYLASE 1 EACH CAPSULE.DR PO SCH ×3 (08:21→17:07)
[2021-01-27] MEDS: METFORMIN 500 MG TABLET PO SCH ×2 (08:21→16:27)
[2021-01-27] MEDS: GLUCERNA SHAKE 237 ML CAN PO SCH ×2 (08:22→17:07)
[2021-01-27] MEDS: LITHIUM CARBONATE 150 MG CAPSULE PO SCH ×2 (08:22→20:54)
--- NOTE | 2021-01-27 08:50 | NUR ---
SNF Referral: Per pt's daughter Amanda's request. SW faxed clinicals to [facility] ([phone]) for placement option.
[2021-01-27] MEDS: LISINOPRIL (20MG) 20 MG TABLET PO SCH ×2 (09:39→16:28)
[2021-01-27 09:40] VITALS: BP 126/69
--- NOTE | 2021-01-27 13:02 | NUR ---
Court Hearing: Patient's court hearing was today and it was upheld for danger to himself and GD.
[2021-01-27 16:00] VITALS: BP 150/73
[2021-01-27] MEDS: SIMVASTATIN 20 MG TABLET PO SCH (17:07)
[2021-01-27 20:13] VITALS: BP 150/73
[2021-01-27] MEDS: ZOLPIDEM TARTRATE 5 MG TABLET PO PRN (20:54)
[2021-01-27] MEDS: OLANZAPINE 2.5 MG TABLET PO SCH (21:01)
[2021-01-28 08:00] VITALS: BP 139/83
[2021-01-28] MEDS: GLUCERNA SHAKE 237 ML CAN PO SCH ×2 (08:18→17:31)
[2021-01-28] MEDS: METFORMIN 500 MG TABLET PO SCH ×2 (08:22→17:34)
[2021-01-28] MEDS: LITHIUM CARBONATE 150 MG CAPSULE PO SCH ×2 (08:22→20:43)
[2021-01-28] MEDS: LIPASE/PROTEASE/AMYLASE 1 EACH CAPSULE.DR PO SCH ×3 (08:22→17:34)
[2021-01-28] MEDS: LISINOPRIL (20MG) 20 MG TABLET PO SCH ×2 (08:23→17:34)
[2021-01-28 16:00] VITALS: BP 150/82
[2021-01-28] MEDS: SIMVASTATIN 20 MG TABLET PO SCH (17:35)
[2021-01-28 19:48] VITALS: BP 128/81
--- NOTE | 2021-01-28 20:00 | NUR ---
received in bed starring at the ceiling when name spoken will give eye contact noted delay in producing an answer speech defect but is understandable noted he does roll and lay on his sides indepententily
[2021-01-28] MEDS: OLANZAPINE 2.5 MG TABLET PO SCH (21:44)
[2021-01-28] MEDS: ZOLPIDEM TARTRATE 5 MG TABLET PO PRN (21:45)
[2021-01-28 22:59] VITALS: BP 128/81
--- NOTE | 2021-01-29 05:06 | NUR ---
CLOSING NOTES: THIS 12 HOURS HE STAYED IN HIS BED IN ROOM STARING AT THE CEILING. wHEN NAME SPOKEN HE WOULD GIVE EYE CONTACT. HIS SPEECH IS IMPAIRED SLOW THOUGHT PROCESS ABLE TO UNDERSTAND HIM WITH HIS SPEECH PROBLEM. HE IS CALM AND PLEASENT
[2021-01-29 08:00] VITALS: BP 158/80
[2021-01-29] MEDS: GLUCERNA SHAKE 237 ML CAN PO SCH ×2 (08:27→17:00)
[2021-01-29] MEDS: METFORMIN 500 MG TABLET PO SCH ×2 (08:31→17:02)
[2021-01-29] MEDS: LISINOPRIL (20MG) 20 MG TABLET PO SCH ×2 (08:31→17:03)
[2021-01-29] MEDS: LITHIUM CARBONATE 150 MG CAPSULE PO SCH ×2 (08:31→20:53)
[2021-01-29] MEDS: LIPASE/PROTEASE/AMYLASE 1 EACH CAPSULE.DR PO SCH ×3 (08:31→17:02)
[2021-01-29 16:00] VITALS: BP 159/100
[2021-01-29] MEDS: SIMVASTATIN 20 MG TABLET PO SCH (17:02)
[2021-01-29 20:15] VITALS: BP 142/82
[2021-01-29] MEDS: OLANZAPINE 2.5 MG TABLET PO SCH (21:01)
[2021-01-29] MEDS: ZOLPIDEM TARTRATE 5 MG TABLET PO PRN (21:29)
--- NOTE | 2021-01-29 21:29 | NUR ---
GPS-RN NOTES: INSOMNIA PATIENT UNABLE TO SLEEP. PRN AMBIEN 5MG PO GIVEN ORDERED. WILL CONTINUE TO MONITOR.
[2021-01-30 06:40] LABS: BASOPHILS % (AUTO) 0.2 % (0.0-2.0); EOSINOPHILS % (AUTO) 2.2 % (0.0-6.0); HEMATOCRIT 40 % (39-51); HEMOGLOBIN 13.9 g/dL (13.5-17.5); LYMPHOCYTES # (AUTO) 1.4 K/uL (0.8-4.8); LYMPHOCYTES % (AUTO) 7.5 % (20.0-44.0); MEAN CORPUSCULAR HGB CONC 35 g/dl (31.0-36.0); MEAN CORPUSCULAR VOLUME 90 fL (80-96); MONOCYTES # (AUTO) 1.4 K/uL (0.1-1.30); MONOCYTES % (AUTO) 7.7 % (2.0-12.0); NEUTROPHILS # (AUTO) 14.8 K/uL (1.8-8.9); NEUTROPHILS % (AUTO) 82.4 % (43.0-81.0); PLATELET COUNT (AUTO) 338 K/uL (150-450); RED BLOOD CELL COUNT(AUTO) 4.45 MIL/uL (4.5-6.0)
[2021-01-30 07:01] LABS: ALBUMIN 3.3 g/dL (3.4-5.0); BILIRUBIN,TOTAL 0.7 mg/dL (0.2-1.0); CREATININE 1.2 mg/dL (0.6-1.3); MAGNESIUM 1.6 mg/dL (1.8-2.4); POTASSIUM 4.6 mmol/L (3.5-5.1); TOTAL PROTEIN, SERUM 6.9 g/dL (6.4-8.2)
[2021-01-30 08:00] VITALS: BP 152/85
[2021-01-30] MEDS: GLUCERNA SHAKE 237 ML CAN PO SCH ×2 (08:00→17:00)
--- NOTE | 2021-01-30 08:00 | NUR ---
RN OPENING NOTE PATIENT IN BED RESTING COMFORTABLY. A/OX1. NO ACUTE DISTRESS NOTED. PATIENT REMAINS CONFUSED, ISOLATIVE, WITHDRAWN, PASSIVE, COOPERATIVE WITH CARE BUT ANXIOUS AT TIMES, MED COMPLIANT. ENCOURAGED PATIENT TO ATTEND IN GROUP ACTIVITIES. REORIENTATION PROVIDED. SAFETY PRECAUTIONS IN PLACE. WILL CONTINUE TO MONITOR Q15MIN ROUNDS FOR SAFETY AND BEHAVIOR.
[2021-01-30] MEDS: LITHIUM CARBONATE 150 MG CAPSULE PO SCH ×2 (08:09→21:29)
[2021-01-30] MEDS: METFORMIN 500 MG TABLET PO SCH ×2 (08:09→17:29)
[2021-01-30] MEDS: LISINOPRIL (20MG) 20 MG TABLET PO SCH ×2 (08:09→17:30)
[2021-01-30] MEDS: LIPASE/PROTEASE/AMYLASE 1 EACH CAPSULE.DR PO SCH ×3 (08:09→17:29)
[2021-01-30] MEDS: CLONIDINE HCL 0.1 MG TABLET PO PRN (08:10)
[2021-01-30] MEDS ORDERED: MAGNESIUM OXIDE 400 MG TABLET PO ONE (11:00)
[2021-01-30 16:00] VITALS: BP 136/80
[2021-01-30] MEDS: SIMVASTATIN 20 MG TABLET PO SCH (17:29)
[2021-01-30 19:22] VITALS: BP 105/58
[2021-01-30 20:00] VITALS: BP 105/58
[2021-01-30 21:15] VITALS: BP 107/68
[2021-01-30] MEDS: OLANZAPINE 2.5 MG TABLET PO SCH (22:02)
--- NOTE | 2021-01-31 06:44 | NUR ---
RN NOTE URINE SPECIMEN COLLECTED AND PICKED UP BY CORN SHUCKER.
[2021-01-31 07:17] LABS: BASOPHILS # (AUTO) 0.1 K/uL (0.0-0.2); BASOPHILS % (AUTO) 0.4 % (0.0-2.0); EOSINOPHILS % (AUTO) 1.7 % (0.0-6.0); HEMATOCRIT 39 % (39-51); HEMOGLOBIN 13.8 g/dL (13.5-17.5); LYMPHOCYTES # (AUTO) 1.4 K/uL (0.8-4.8); LYMPHOCYTES % (AUTO) 9.7 % (20.0-44.0); MEAN CORPUSCULAR HGB CONC 35 g/dl (31.0-36.0); MEAN CORPUSCULAR VOLUME 88 fL (80-96); MONOCYTES # (AUTO) 1.2 K/uL (0.1-1.30); NEUTROPHILS # (AUTO) 11.8 K/uL (1.8-8.9); NEUTROPHILS % (AUTO) 80.2 % (43.0-81.0); PLATELET COUNT (AUTO) 353 K/uL (150-450); RED BLOOD CELL COUNT(AUTO) 4.46 MIL/uL (4.5-6.0); WHITE BLOOD COUNT (AUTO) 14.7 K/uL (4.3-11.0)
[2021-01-31 07:20] LABS: BILIRUBIN,URINE NEGATIVE (NEGATIVE); COLOR,URINE YELLOW (YELLOW); LEUKOCYTE ESTERASE ,URINE NEGATIVE (NEGATIVE); NITRITE, URINE NEGATIVE (NEGATIVE); PH,URINE 5.5 (5.0-8.0); PROTEIN,URINE 30 mg/dl (NEGATIVE); UGLUCOSE NEGATIVE (NEGATIVE); UROBILINOGEN,URINE 0.2 EU/dL (0.2)
[2021-01-31 07:26] LABS: CALCIUM, SERUM 9.7 mg/dL (8.5-10.1); CARBON DIOXIDE 22 mmol/L (21-32); CHLORIDE 96 mmol/L (98-107); CREATININE 2.7 mg/dL (0.6-1.3); GLUCOSE 117 mg/dL (74-106); PHOSPHORUS 4.9 mg/dL (2.5-4.9); POTASSIUM 5.1 mmol/L (3.5-5.1); SODIUM SERUM 132 mmol/L (136-145); UREA NITROGEN, BLOOD 57 mg/dL (7-18)
[2021-01-31 08:00] VITALS: BP 131/83
[2021-01-31] MEDS: GLUCERNA SHAKE 237 ML CAN PO SCH ×2 (08:15→16:30)
[2021-01-31] MEDS: LISINOPRIL (20MG) 20 MG TABLET PO SCH ×2 (08:22→16:31)
[2021-01-31] MEDS: LITHIUM CARBONATE 150 MG CAPSULE PO SCH ×2 (08:22→21:45)
[2021-01-31] MEDS: LIPASE/PROTEASE/AMYLASE 1 EACH CAPSULE.DR PO SCH ×3 (08:22→17:05)
[2021-01-31] MEDS: METFORMIN 500 MG TABLET PO SCH ×2 (08:22→16:30)
[2021-01-31] MEDS: BENZTROPINE MESYLATE (1 MG) 1 MG TABLET PO SCH ×2 (10:00→21:45)
[2021-01-31 11:36] LABS: BACTERIA,URINE Rare /HPF (None Seen); RBC,URINE 0-2 /HPF (0-2); SQUAMOUS EPITHELIAL CELL,UR Rare /HPF (None Seen); WBC,URINE 0-2 /HPF (0-3)
--- NOTE | 2021-01-31 15:18 | NUR ---
SS group note: SW met with pt. bedside and invited him to participate in group about: "What they hope will improve after their treatment at [facility]". Pt. has slow thought process with delayed responses. Pt. is not appropriate for group at this time as he is unable to engage in meaningful conversation. SW will monitor pt. and invite pt. to the next group if appropriate.
[2021-01-31 16:00] VITALS: BP 140/93
[2021-01-31] MEDS: SIMVASTATIN 20 MG TABLET PO SCH (17:05)
[2021-01-31 19:48] VITALS: BP 108/58
[2021-01-31] MEDS: OLANZAPINE 2.5 MG TABLET PO SCH (21:45)
[2021-02-01 08:00] VITALS: BP 104/55
[2021-02-01] MEDS: GLUCERNA SHAKE 237 ML CAN PO SCH ×2 (08:10→16:14)
[2021-02-01] MEDS: LISINOPRIL (20MG) 20 MG TABLET PO SCH ×2 (08:11→16:18)
[2021-02-01] MEDS: BENZTROPINE MESYLATE (1 MG) 1 MG TABLET PO SCH ×2 (08:14→21:00)
[2021-02-01] MEDS: METFORMIN 500 MG TABLET PO SCH ×2 (08:14→16:18)
[2021-02-01] MEDS: LITHIUM CARBONATE 150 MG CAPSULE PO SCH ×2 (08:15→21:00)
[2021-02-01] MEDS: LIPASE/PROTEASE/AMYLASE 1 EACH CAPSULE.DR PO SCH ×3 (08:15→17:01)
--- NOTE | 2021-02-01 10:33 | NUR ---
SNF Referral: Per pt's daughter Amanda's request. SW faxed clinicals to [facility] ([phone]) update clinicals and SW will follow up with admissions.
--- NOTE | 2021-02-01 11:19 | NUR ---
SNF Referral: SW contacted admissions and spoke with CUCO Leija from [facility] ([phone]) who stated that they usually do not accept pt's from a psych unit, however, she expressed that she will follow up with admissions and will give this freelance writer an answer if pt is accepted or not.
[2021-02-01 15:46] VITALS: BP 114/82
[2021-02-01] MEDS: SIMVASTATIN 20 MG TABLET PO SCH (17:01)
[2021-02-01 19:58] VITALS: BP 122/68
[2021-02-01] MEDS: OLANZAPINE 2.5 MG TABLET PO SCH (21:00)
[2021-02-02 06:57] LABS: BASOPHILS % (AUTO) 0.3 % (0.0-2.0); EOSINOPHILS % (AUTO) 3.2 % (0.0-6.0); HEMATOCRIT 36 % (39-51); HEMOGLOBIN 12.5 g/dL (13.5-17.5); LYMPHOCYTES # (AUTO) 1.6 K/uL (0.8-4.8); LYMPHOCYTES % (AUTO) 10.8 % (20.0-44.0); MEAN CORPUSCULAR HGB CONC 35 g/dl (31.0-36.0); MEAN CORPUSCULAR VOLUME 89 fL (80-96); MONOCYTES # (AUTO) 1.2 K/uL (0.1-1.30); MONOCYTES % (AUTO) 8.5 % (2.0-12.0); NEUTROPHILS # (AUTO) 11.3 K/uL (1.8-8.9); NEUTROPHILS % (AUTO) 77.2 % (43.0-81.0); PLATELET COUNT (AUTO) 317 K/uL (150-450); WHITE BLOOD COUNT (AUTO) 14.6 K/uL (4.3-11.0)
[2021-02-02 07:06] LABS: CALCIUM, SERUM 9.2 mg/dL (8.5-10.1); CARBON DIOXIDE 23 mmol/L (21-32); CHLORIDE 98 mmol/L (98-107); CREATININE 3.1 mg/dL (0.6-1.3); GLUCOSE 95 mg/dL (74-106); POTASSIUM 5.2 mmol/L (3.5-5.1); SODIUM SERUM 133 mmol/L (136-145)
[2021-02-02 07:24] LABS: UREA NITROGEN, BLOOD 86 mg/dL (7-18)
[2021-02-02 08:00] VITALS: BP 122/65
[2021-02-02] MEDS: BENZTROPINE MESYLATE (1 MG) 1 MG TABLET PO SCH (08:43)
[2021-02-02] MEDS: METFORMIN 500 MG TABLET PO SCH (08:43)
[2021-02-02 08:44] VITALS: BP 122/65
[2021-02-02] MEDS: GLUCERNA SHAKE 237 ML CAN PO SCH (08:44)
[2021-02-02] MEDS: LIPASE/PROTEASE/AMYLASE 1 EACH CAPSULE.DR PO SCH (08:44)
[2021-02-02] MEDS: LISINOPRIL (20MG) 20 MG TABLET PO SCH (08:44)
[2021-02-02] MEDS: LITHIUM CARBONATE 150 MG CAPSULE PO SCH (08:44)
--- NOTE | 2021-02-02 09:47 | NUR ---
RN-CO: LIST OF VALUABLES AND BELONGINGS WERE PASSED TO MEDICAL FLOOR.
--- NOTE | 2021-02-02 09:50 | NUR ---
SW Transfer Note: Patient will be transferred to the medical floor due to dehydration. Doctor Michael will discontinue the hold. Patient's daughter Amanda is the DPOA ([phone]) [place] [address]; ([phone]). DPOA would want pt to be discharged here upon dc. [facility] accepted pt at the facility.
--- NOTE | 2021-02-02 10:10 | NUR ---
RN NOTES DR SEEN BY DR CRAIN THIS MORNING AND MADE AWARE OF PT'S CRITICAL HIGH BUN 86 WITH ORDER TO DISCHARGE PT TO MED-SURG/[facility] FOR CONTINUATION OF CARE.
[2021-02-02] MEDS ORDERED: BENZ0.5T43 PO (11:20)
[2021-02-02] MEDS ORDERED: CLON0.1T PO (11:20)
[2021-02-02] MEDS ORDERED: MAG30ORA PO (11:20)
[2021-02-02] MEDS ORDERED: ACET-868 PO (11:20)
[2021-02-02] MEDS ORDERED: ZOLP5TAB8 PO (11:20)
[2021-02-02] MEDS ORDERED: LITH150C PO (11:20)
[2021-02-02] MEDS ORDERED: MAGN400O6 PO (11:20)
[2021-02-02] MEDS ORDERED: NUT.237L28 PO (11:20)
[2021-02-02] MEDS ORDERED: LIPA1CAP27 PO (11:20)
--- NOTE | 2021-02-02 12:05 | NUR ---
RN DISCHARGED NOTES PT DISCHARGED FROM [facility] TO MED-SURG UNIT ROOM 309- PER MD ORDER. PT IS A/O X-2-3. ABLE TO MAKE NEEDS KNOWN, DENIES SI/HI. V/S TAKEN, STABLE AND RECORDED. PHOTO OF SKIN ISSUES TAKEN AND FILED IN HIS CHART. ALL BELONGINGS ACCOUNTED FOR. CALLED AND DISCHARGED INSTRUCTIONS GIVEN TO HUMBERTO WAITE AND VERBALIZED UNDERSTANDING. PT TRANSFERRED TO [address] [place] [address] VIA WHEELCHAIR ACCOMPANIED BY AND DAVID CHOWDHURY AT 1120. CHARGE NURSE EDWIN AWARE OF DISCHARGE. . Addendum: 02/02/21 at 1233 by GUI DRAKE RN ADDITIONAL NOTES: PATIENT'S DAUGHTER ERNESTO CALLED AT [facility]# [phone] AND INFORMED OF PT'S DISCHARGED TO [address] [place] [address].
[2021-02-04] MEDS ORDERED: Tamsulosin PO (12:12)
== END 2021-02-02 11:25 | disposition short-term general hospital (02) | DRG 885 ==
LOC: GPS 21:23
PROVIDERS: ADMIT Psychiatry & Neurology Psychiatry; ATTEND Internal Medicine
DX: F31.64 Bipolar disorder, current episode mixed, severe, with psychotic features (principal); N17.9 Acute kidney failure, unspecified; K86.1 Other chronic pancreatitis; F29 Unspecified psychosis not due to a substance or known physiological condition; F41.9 Anxiety disorder, unspecified; E78.5 Hyperlipidemia, unspecified; F03.90 Unspecified dementia, unspecified severity, without behavioral disturbance, psychotic disturbance, mood disturbance, and anxiety; F39 Unspecified mood [affective] disorder; Z73.6 Limitation of activities due to disability; M62.81 Muscle weakness (generalized); F10.21 Alcohol dependence, in remission; E11.9 Type 2 diabetes mellitus without complications; Z79.84 Long term (current) use of oral hypoglycemic drugs
CPT/HCPCS: 36415; 80048-TC; 80053-TC; 80061-TC; 81001; 82962-TC; 83735-TC; 84100-TC; 84439-TC; 84443-TC; 84481; 85025-TC; 87081-TC; 87086-TC; 97116-TC; 97530-TC

== ENCOUNTER 2021-02-02 11:06 | Inpatient (IN) | payer MEDICARE, BC ==
[~2021-02-02] VITALS: Ht 185.4 cm; Wt 71.7 kg
[~2021-02-02 11:06] MED LIST changes: +OLAN2.5T3 PO
[2021-02-02] MEDS ORDERED: CLON0.1T PO (11:20)
[2021-02-02] MEDS ORDERED: ACET-868 PO (11:20)
[2021-02-02] MEDS ORDERED: MAG30ORA PO (11:20)
[2021-02-02] MEDS ORDERED: BENZ0.5T43 PO (11:20)
[2021-02-02] MEDS ORDERED: LITH150C PO (11:20)
[2021-02-02] MEDS ORDERED: LIPA1CAP27 PO (11:20)
[2021-02-02] MEDS ORDERED: ZOLP5TAB8 PO (11:20)
[2021-02-02] MEDS ORDERED: MAGN400O6 PO (11:20)
[2021-02-02] MEDS ORDERED: NUT.237L28 PO (11:20)
--- NOTE | 2021-02-02 11:30 | NUR ---
ADMISSION ORDER Received patient via [employer], direct admit from [facility]. Patient is A/O x 2-3, with periods of confusion. On room air breathing evenly and unlabored, no SOB or s/s of distress noted. Vital signs taken as follows: Temp 97.7, OR 92, RR 18, BP 102/58, SPO2 100%. Patient denies any pain or discomfort at this time. Skin assessment performed, multiple redness on both arms noted. Photos taken and placed in chart. Active bowel sounds noted. Patient oriented to room and how to use the call light. Belongings accounted for. Safety precautions in place: bed in low locked position, siderails up x 2, call light within reach. Will continue to monitor.
[2021-02-02] MEDS ORDERED: LORAZEPAM 1 MG TABLET PO PRN (12:30)
[2021-02-02] MEDS ORDERED: IV NS 0.9% 1,000 ML IV ONE ×2 (12:30→19:30)
[2021-02-02] MEDS ORDERED: MORPHINE SULFATE INJ 2 MG/ML DISP.SYRIN IV PRN (12:30)
[2021-02-02] MEDS ORDERED: DEXTROSE 50%-WATER 50 ML DISP.SYRIN IV PRN (12:30)
[2021-02-02] MEDS ORDERED: LOPERAMIDE HCL (2 MG CAP) 2 MG CAPSULE PO PRN (12:30)
[2021-02-02] MEDS ORDERED: ONDANSETRON HCL/PF 4 MG/2 ML VIAL IVP PRN (12:30)
[2021-02-02] MEDS ORDERED: ACETAMINOPHEN 325 MG TABLET PO PRN (12:30)
[2021-02-02] MEDS ORDERED: LIPASE/PROTEASE/AMYLASE 1 EACH CAPSULE.DR PO SCH (13:00)
[2021-02-02] MEDS: LIPASE/PROTEASE/AMYLASE 1 EACH CAPSULE.DR PO SCH ×2 (13:21→18:13)
[2021-02-02 13:24] LABS: ALANINE AMINOTRANSFERASE 26 U/L (12-78); ALBUMIN 3.1 g/dL (3.4-5.0); ALKALINE PHOSPHATASE 60 U/L (46-116); ASPARTATE AMINOTRANSFERASE 11 U/L (15-37); BILIRUBIN,TOTAL 0.4 mg/dL (0.2-1.0); CALCIUM, SERUM 9.1 mg/dL (8.5-10.1); CARBON DIOXIDE 22 mmol/L (21-32); CHLORIDE 97 mmol/L (98-107); CREATININE 3.3 mg/dL (0.6-1.3); GLUCOSE 89 mg/dL (74-106); POTASSIUM 5.5 mmol/L (3.5-5.1); SODIUM SERUM 131 mmol/L (136-145); TOTAL PROTEIN, SERUM 6.2 g/dL (6.4-8.2)
[2021-02-02] MEDS: HEPARIN SODIUM, PORCINE 5000 UNITS/1 ML VIAL SQ SCH ×2 (13:26→21:07)
[2021-02-02 13:28] LABS: UREA NITROGEN, BLOOD 86 mg/dL (7-18)
--- NOTE | 2021-02-02 13:30 | NUR ---
RN NOTE IV inserted on LFA #20 and IV NS bolus started as per Dr. Waldron order.
[2021-02-02] MEDS: IV NS 0.9% 1,000 ML IV PRN ×2 (13:34→16:35)
[2021-02-02] MEDS: BLOOD SUGAR DIAGNOSTIC 1 EACH STRIP IN SCH ×3 (13:44→21:25)
--- NOTE | 2021-02-02 14:30 | NUR ---
RN NOTE Critical result called in by Sonny, Lactic acid 4.0. MD aware, ordered to continue IV bolus and recheck Lactic acid when IV bolus if finished.
[2021-02-02 16:00] VITALS: BP 123/66
[2021-02-02 16:46] LABS: BILIRUBIN,DIRECT 0.1 mg/dL (0.0-0.2)
--- NOTE | 2021-02-02 17:25 | NUR ---
MS RN CLOSING NOTE Patient in bed, resting comfortably. A/O x 2-3. Stable on room air, no SOB or s/s of distress noted. IV access on LFA #20, IV fluids NS at 125 ml/hr. All needs attended to. Due meds given. Safety precautions maintained: bed in low, locked position; siderals up x 2; call light within reach. Will endorse to shift supervisor melting nurse for ERICK. Addendum: 02/02/21 at 2006 by RAVINDRA FORD RN CORRECTION: CLOSING NOTE TIME IS 1924
[2021-02-02] MEDS: LISINOPRIL (20MG) 20 MG TABLET PO SCH (18:13)
[2021-02-02] MEDS: SIMVASTATIN 20 MG TABLET PO SCH (18:13)
[2021-02-02 18:32] LABS: CALCIUM, SERUM 8.6 mg/dL (8.5-10.1); CARBON DIOXIDE 24 mmol/L (21-32); CHLORIDE 98 mmol/L (98-107); GLUCOSE 110 mg/dL (74-106); POTASSIUM 5.1 mmol/L (3.5-5.1); SODIUM SERUM 132 mmol/L (136-145); UREA NITROGEN, BLOOD 78 mg/dL (7-18)
[2021-02-02 18:47] LABS: ALANINE AMINOTRANSFERASE 27 U/L (12-78); ALBUMIN 3.1 g/dL (3.4-5.0); ALKALINE PHOSPHATASE 67 U/L (46-116); ASPARTATE AMINOTRANSFERASE 13 U/L (15-37); BILIRUBIN,TOTAL 0.5 mg/dL (0.2-1.0); TOTAL PROTEIN, SERUM 6.3 g/dL (6.4-8.2)
--- NOTE | 2021-02-02 19:00 | NUR ---
RN NOTE Critical value called iin by Thu, Lactic acid 3.5. aware and ordered another 1000 ml of NS and to order stat CK when bolus is finished.
--- NOTE | 2021-02-02 19:30 | NUR ---
MS RN OPENING NOTE RECEIVED PT IN BED AWAKE. A/O X2-3 WITH EPISODES OF CONFUSION. PT STABLE ON ROOM AIR. NO SOB OR S/S OF RESPIRATORY DISTRESS. IV ACCESS L FA 20 GAUGE RUNNING NS AT 125 ML/HR, INTACT AND PATENT. SAFETY PRECAUTION IN PLACE. BED IN LOWEST LOCKED POSITION, HOB ELEVATED, SIDE RAILS UP X2, AND CALL LIGHT AND TABLE WITHIN REACH. WILL CONTINUE TO MONITOR.
[2021-02-02 20:00] VITALS: BP 143/73
[2021-02-02] MEDS: OLANZAPINE 2.5 MG TABLET PO SCH (21:03)
[2021-02-02] MEDS: LITHIUM CARBONATE 150 MG CAPSULE PO SCH (21:03)
[2021-02-02] MEDS: BENZTROPINE MESYLATE (1 MG) 1 MG TABLET PO SCH (21:03)
--- NOTE | 2021-02-03 06:28 | NUR ---
MS RN CLOSING NOTE PT IN BED AWAKE. A/O X2-3 WITH EPISODES OF CONFUSION. PT STABLE ON ROOM AIR. NO SOB OR S/S OF RESPIRATORY DISTRESS. IV ACCESS L FA 20 GAUGE RUNNING NS AT 125 ML/HR, INTACT AND PATENT. ALL NEEDS MET AT THIS TIME. SAFETY PRECAUTIONS MAINTAINED AT ALL TIMES. BED IN LOWEST LOCKED POSITION, HOB ELEVATED, SIDE RAILS UP X2, AND CALL LIGHT AND TABLE WITHIN REACH. WILL ENDORSE TO ONCOMING NURSE FOR ERICK.
[2021-02-03 06:34] LABS: ALANINE AMINOTRANSFERASE 22 U/L (12-78); ALKALINE PHOSPHATASE 64 U/L (46-116); ASPARTATE AMINOTRANSFERASE 9 U/L (15-37); BILIRUBIN,TOTAL 0.5 mg/dL (0.2-1.0); CALCIUM, SERUM 8.9 mg/dL (8.5-10.1); CARBON DIOXIDE 21 mmol/L (21-32); CHLORIDE 102 mmol/L (98-107); CREATININE 2.3 mg/dL (0.6-1.3); GLUCOSE 92 mg/dL (74-106); PHOSPHORUS 3.2 mg/dL (2.5-4.9); POTASSIUM 4.6 mmol/L (3.5-5.1); SODIUM SERUM 134 mmol/L (136-145); TOTAL PROTEIN, SERUM 6.6 g/dL (6.4-8.2); UREA NITROGEN, BLOOD 69 mg/dL (7-18)
[2021-02-03] MEDS: BLOOD SUGAR DIAGNOSTIC 1 EACH STRIP IN SCH ×4 (06:34→22:10)
[2021-02-03 06:36] LABS: BASOPHILS # (AUTO) 0.1 K/uL (0.0-0.2); BASOPHILS % (AUTO) 0.6 % (0.0-2.0); EOSINOPHILS % (AUTO) 3.1 % (0.0-6.0); HEMATOCRIT 37 % (39-51); HEMOGLOBIN 12.8 g/dL (13.5-17.5); LYMPHOCYTES # (AUTO) 1.1 K/uL (0.8-4.8); LYMPHOCYTES % (AUTO) 9.9 % (20.0-44.0); MEAN CORPUSCULAR HGB CONC 34 g/dl (31.0-36.0); MEAN CORPUSCULAR VOLUME 92 fL (80-96); MONOCYTES # (AUTO) 0.9 K/uL (0.1-1.30); MONOCYTES % (AUTO) 7.6 % (2.0-12.0); NEUTROPHILS % (AUTO) 78.8 % (43.0-81.0); PLATELET COUNT (AUTO) 292 K/uL (150-450); RED BLOOD CELL COUNT(AUTO) 4.08 MIL/uL (4.5-6.0); WHITE BLOOD COUNT (AUTO) 11.4 K/uL (4.3-11.0)
[2021-02-03] MEDS: IV NS 0.9% 1,000 ML IV PRN ×2 (07:16→16:06)
--- NOTE | 2021-02-03 07:40 | NUR ---
MS RN OPENING NOTE PT IS ASLEEP IN BED, EASY TO AROUSE. ALERT AND ORIENTED X 2-3 WITH CONFUSION. PT ON ROOM AIR, TOLERATING WELL. NO S/SX OF DISTRESS, NO SOB. BREATHING IS EVEN AND UNLABORED. IV ACCESS LFA#20 PATENT AND INTACT WITH NS 0.9% RUNNING AT 125MLS/HR. SAFETY MEASURES IN PLACE WITH BED LOCKED AT LOW POSITION, SIDE RAILS UP X 2. WILL CONTINUE TO MONITOR PATIENT THROUGHOUT SHIFT.
[2021-02-03 08:00] VITALS: BP 176/89
[2021-02-03] MEDS: LITHIUM CARBONATE 150 MG CAPSULE PO SCH ×2 (08:26→21:05)
[2021-02-03] MEDS: LIPASE/PROTEASE/AMYLASE 1 EACH CAPSULE.DR PO SCH ×3 (08:26→17:34)
[2021-02-03] MEDS: BENZTROPINE MESYLATE (1 MG) 1 MG TABLET PO SCH ×2 (08:26→21:05)
[2021-02-03] MEDS: HEPARIN SODIUM, PORCINE 5000 UNITS/1 ML VIAL SQ SCH ×2 (08:43→21:08)
[2021-02-03] MEDS: LISINOPRIL (20MG) 20 MG TABLET PO SCH ×2 (08:44→16:26)
--- NOTE | 2021-02-03 09:11 | NUR ---
SS consult requested for Suicidal Ideation. SW will follow up at a later time.
--- NOTE | 2021-02-03 10:59 | NUR ---
MS RN NOTES 16F PAREDES CATHETER PLACED PER MD ORDER, WITHOUT DIFFICULTY; PATIENT TOLERATED WELL. 700ML URINARY OUTPUT NOTED. DR. SR AND CHARGE NURSE, RICHA MADE AWARE.
--- NOTE | 2021-02-03 11:17 | NUR ---
MS RN NOTES MRSA SWAB COLLECTED FROM BILATERAL NARES; SPECIMEN HANDED TO BANKING ANALYST ON UNIT.
[2021-02-03 11:32] LABS: BILIRUBIN,URINE NEGATIVE (NEGATIVE); COLOR,URINE YELLOW (YELLOW); LEUKOCYTE ESTERASE ,URINE NEGATIVE (NEGATIVE); NITRITE, URINE NEGATIVE (NEGATIVE); PH,URINE 5.5 (5.0-8.0); PROTEIN,URINE NEGATIVE (NEGATIVE); UGLUCOSE NEGATIVE (NEGATIVE); UROBILINOGEN,URINE 0.2 EU/dL (0.2)
[2021-02-03 11:45] LABS: CREATININE, URINE 40.4 MG/DL (30.0-125.0)
[2021-02-03 16:00] VITALS: BP 142/80
[2021-02-03] MEDS: SIMVASTATIN 20 MG TABLET PO SCH (17:34)
--- NOTE | 2021-02-03 18:49 | NUR ---
MS RN CLOSING NOTE PT IS ASLEEP IN BED, EASY TO AROUSE. NO S/SX OF DISTRESS, NO SOB. BREATHING IS EVEN AND UNLABORED. IV ACCESS LFA#20 PATENT AND INTACT WITH NS 0.9% RUNNING AT 125MLS/HR. PAREDES CATHETER PATENT AND DRAINING CLEAR YELLOW URINE. SAFETY MEASURES MAINTAINED. WILL ENDORSE CONTINUITY OF CARE TO ONCOMING SHIFT.
--- NOTE | 2021-02-03 19:24 | NUR ---
MS RN OPENING NOTE RECEIVED PT IN BED AWAKE. A/O X2-3 WITH EPISODES OF CONFUSION. PT STABLE ON ROOM AIR. NO SOB OR S/S OF RESPIRATORY DISTRESS. IV ACCESS L FA 20 GAUGE RUNNING NS AT 125 ML/HR, INTACT AND PATENT. PAREDES CATHETER IN PLACE, INTACT AND PATENT. SAFETY PRECAUTION IN PLACE. BED IN LOWEST LOCKED POSITION, HOB ELEVATED, SIDE RAILS UP X2, AND CALL LIGHT AND TABLE WITHIN REACH. WILL CONTINUE TO MONITOR.
[2021-02-03 20:00] VITALS: BP 136/73
[2021-02-03] MEDS: TAMSULOSIN 0.4 MG CAP.SR.24H PO SCH (21:05)
[2021-02-03] MEDS: OLANZAPINE 2.5 MG TABLET PO SCH (21:05)
[2021-02-04] MEDS: IV NS 0.9% 1,000 ML IV PRN ×3 (04:56→23:10)
[2021-02-04] MEDS: BLOOD SUGAR DIAGNOSTIC 1 EACH STRIP IN SCH ×4 (06:30→21:25)
--- NOTE | 2021-02-04 06:41 | NUR ---
MS RN CLOSING NOTE PT IN BED AWAKE. A/O X2-3 WITH EPISODES OF CONFUSION. PT STABLE ON ROOM AIR. NO SOB OR S/S OF RESPIRATORY DISTRESS. IV ACCESS L FA 20 GAUGE RUNNING NS AT 125 ML/HR, INTACT AND PATENT. PAREDES CATHETER INTACT AND PATENT. ALL NEEDS MET AT THIS TIME. SAFETY PRECAUTIONS MAINTAINED AT ALL TIMES. BED IN LOWEST LOCKED POSITION, HOB ELEVATED, SIDE RAILS UP X2, AND CALL LIGHT AND TABLE WITHIN REACH. WILL ENDORSE TO ONCOMING NURSE FOR ERICK.
[2021-02-04 07:06] LABS: ALANINE AMINOTRANSFERASE 22 U/L (12-78); ALKALINE PHOSPHATASE 65 U/L (46-116); ASPARTATE AMINOTRANSFERASE 12 U/L (15-37); BILIRUBIN,TOTAL 0.4 mg/dL (0.2-1.0); CALCIUM, SERUM 8.5 mg/dL (8.5-10.1); CARBON DIOXIDE 22 mmol/L (21-32); CHLORIDE 104 mmol/L (98-107); CREATININE 1.4 mg/dL (0.6-1.3); GLUCOSE 92 mg/dL (74-106); POTASSIUM 4.9 mmol/L (3.5-5.1); SODIUM SERUM 135 mmol/L (136-145); TOTAL PROTEIN, SERUM 5.9 g/dL (6.4-8.2); UREA NITROGEN, BLOOD 43 mg/dL (7-18)
--- NOTE | 2021-02-04 07:43 | NUR ---
RN OPENING NOTES Patient seen comfortably lying in bed, no apparent distress noted, respirations even and unlabored, no SOB, denies any pain or discomfort at this time, no grimacing. Call light left within reach, safety precautions in place, brakes locked, side rails up X 2, will monitor closely for any changes.
[2021-02-04 08:00] VITALS: BP 156/78
[2021-02-04] MEDS: BENZTROPINE MESYLATE (1 MG) 1 MG TABLET PO SCH ×2 (09:35→20:44)
[2021-02-04] MEDS: LITHIUM CARBONATE 150 MG CAPSULE PO SCH ×2 (09:36→20:44)
[2021-02-04] MEDS: LISINOPRIL (20MG) 20 MG TABLET PO SCH ×2 (09:38→17:15)
[2021-02-04] MEDS: LIPASE/PROTEASE/AMYLASE 1 EACH CAPSULE.DR PO SCH ×3 (09:51→17:12)
[2021-02-04] MEDS: HEPARIN SODIUM, PORCINE 5000 UNITS/1 ML VIAL SQ SCH ×2 (09:56→20:45)
[2021-02-04] MEDS ORDERED: Tamsulosin PO (12:12)
[2021-02-04 16:00] VITALS: BP 150/85
[2021-02-04] MEDS: SIMVASTATIN 20 MG TABLET PO SCH (17:12)
--- NOTE | 2021-02-04 18:57 | NUR ---
RN CLOSING NOTES Patient lying in bed, respirations even and unlabored, no SOB, no dizziness, no palpitations, no apparent distress noted, denies any pain or discomfort, no grimacing. All medications given per MD order, tolerating well. No s/s of hypo/hyperglycemia at this time, no change in level of consciousness no tremors. All needs anticipated, aspiration precautions observed, head of bed elevated during medication administration and during meals, kept clean and dry, call light left within reach, safety precautions in place, brakes locked, side rails up X 2, will endorse to next shift for continuity of care.
--- NOTE | 2021-02-04 19:30 | NUR ---
RN opening nurse Received Pt from morning nurse. Pt is laying in bed comfortably watching TV. Pt is alert and orientedX2-3 with episode of confusion. Respiration is normal in room air. NO SOB. No S/s of distress noted. IV site at LFA# 20 is clean, intact and infusing well NS@ 125 ml/hr. Walton cath is intact and draining yellow urine. Safety precautions is maintained. Bed at low position, brakes locked, side rails upX3, HOB elevated and call light is within reach. Will continue to monitor.
[2021-02-04 20:00] VITALS: BP 145/82
[2021-02-04] MEDS: TAMSULOSIN 0.4 MG CAP.SR.24H PO SCH (21:20)
[2021-02-04] MEDS: OLANZAPINE 2.5 MG TABLET PO SCH (21:20)
[2021-02-04] MEDS: INSULIN REGULAR, HUMAN 100 UNIT/ML 3 ML VIAL SQ PRN (21:26)
--- NOTE | 2021-02-04 21:27 | NUR ---
RN notes Pt's blood sugar HS is 128. No coverage is given per level ordered. Will continue to monitor.
[2021-02-05] MEDS: BLOOD SUGAR DIAGNOSTIC 1 EACH STRIP IN SCH ×4 (06:32→21:56)
[2021-02-05] MEDS: INSULIN REGULAR, HUMAN 100 UNIT/ML 3 ML VIAL SQ PRN ×2 (06:40→22:04)
--- NOTE | 2021-02-05 06:41 | NUR ---
RN notes Pt's blood sugar AC is 92. Held per level order. No S/S of hypoglycemia. Will continue to monitor.
--- NOTE | 2021-02-05 06:47 | NUR ---
RN closing nurse Pt is resting in bed comfortably. Pt is alert and orientedX2-3 with episode of confusion. Respiration is normal in room air. NO SOB. No S/s of distress noted. VS is stable. IV site at LFA# 20 is clean, intact and infusing well NS@ 125 ml/hr. Routine meds were given as ordered. Walton cath is intact and draining yellow urine 2200 ml. Kept Pt clean, dry and comfortable. Safety precautions is maintained. Bed at low position, brakes locked, side rails upX3, HOB elevated and call light is within reach. Will endorse to am nurse for ERICK.
[2021-02-05 07:33] LABS: ALBUMIN 2.6 g/dL (3.4-5.0); BILIRUBIN,TOTAL 0.4 mg/dL (0.2-1.0); CALCIUM, SERUM 8.4 mg/dL (8.5-10.1); CREATININE 1.3 mg/dL (0.6-1.3); POTASSIUM 4.8 mmol/L (3.5-5.1); TOTAL PROTEIN, SERUM 5.9 g/dL (6.4-8.2)
--- NOTE | 2021-02-05 07:57 | NUR ---
RN note Patient received AO x 2-3, able to responds all stimuli. Does no appears pain or discomfort. Skin is warm to touch, keep clean/dry, intact IV site on left FA. Patient remains sanchez catheter and empty urine bag noted. Respiratory even and unlabored on room air, no SOB observed. Call light within reach, kept lower bed position for safety. Will continue to monitor.
[2021-02-05 08:05] VITALS: BP 160/81
[2021-02-05] MEDS ORDERED: LISI20TA30 PO (09:10)
[2021-02-05] MEDS ORDERED: AMLO-213 PO (09:10)
[2021-02-05] MEDS: BENZTROPINE MESYLATE (1 MG) 1 MG TABLET PO SCH ×2 (10:00→20:45)
[2021-02-05] MEDS: LITHIUM CARBONATE 150 MG CAPSULE PO SCH ×2 (10:01→20:47)
[2021-02-05] MEDS: HEPARIN SODIUM, PORCINE 5000 UNITS/1 ML VIAL SQ SCH ×2 (10:02→20:46)
[2021-02-05] MEDS: AMLODIPINE BESYLATE 5 MG TABLET PO SCH (10:05)
[2021-02-05] MEDS: LISINOPRIL (20MG) 20 MG TABLET PO SCH (10:27)
[2021-02-05] MEDS: LIPASE/PROTEASE/AMYLASE 1 EACH CAPSULE.DR PO SCH ×3 (10:27→17:11)
[2021-02-05 16:21] VITALS: BP 149/82
[2021-02-05] MEDS: SIMVASTATIN 20 MG TABLET PO SCH (17:11)
--- NOTE | 2021-02-05 17:43 | NUR ---
RN Closing Note Patient in bed, resting, does no appears pain or discomfort. Respiratory even and unabashed on room air. Skin is warm to touch, keep clean/dry, intact IV site site on left FA. Patient on sanchez catheter and 2,000 mL out put. IVF has been d/c and encourage oral fluid intake as tolerated. Kept elevated HOB for airway and lower position of the bed for safety. Call light within reach, all needs met. will endorse restaurant shift leader.
--- NOTE | 2021-02-05 19:38 | NUR ---
RN NOTES RECEIVED PATIENT IN BED, ALERT/ORIENTED X2, STABLE ON ROOM AIR, NO COMPLAIN OF PAIN, CALM, PAREDES CATHETER DRAINING WELL, NO DISTRESS, KEPT SAFE, WILL CONTINUE TO MONITOR, CALL LIGHT WITHIN REACH.
[2021-02-05 20:00] VITALS: BP 143/77
[2021-02-05] MEDS: TAMSULOSIN 0.4 MG CAP.SR.24H PO SCH (21:06)
[2021-02-05] MEDS: OLANZAPINE 2.5 MG TABLET PO SCH (21:07)
[2021-02-06] MEDS: BLOOD SUGAR DIAGNOSTIC 1 EACH STRIP IN SCH ×4 (06:36→23:06)
[2021-02-06] MEDS: INSULIN REGULAR, HUMAN 100 UNIT/ML 3 ML VIAL SQ PRN (06:37)
--- NOTE | 2021-02-06 06:55 | NUR ---
Alert/oriented x2, forgetful, calm, room air, no complain of pain, last BM 02/04/21, sanchez catheter draining well, indication for sanchez is acute kidney injury, urine output much improved, BUN/Cr improved, for discharge planning to SNF, planned discharge on 02/07/21, keep sanchez catheter, voiding trial can be done in the SNF, will discharge to [facility].
[2021-02-06 07:12] LABS: ALBUMIN 2.7 g/dL (3.4-5.0); BILIRUBIN,TOTAL 0.3 mg/dL (0.2-1.0); CALCIUM, SERUM 8.5 mg/dL (8.5-10.1); CREATININE 1.1 mg/dL (0.6-1.3); POTASSIUM 4.5 mmol/L (3.5-5.1); TOTAL PROTEIN, SERUM 6.2 g/dL (6.4-8.2)
--- NOTE | 2021-02-06 07:13 | NUR ---
MS RN OPENING NOTE RECEIVED PATIENT ASLEEP BUT EASILY AROUSABLE. PATEINT IS ORIENTED X 2. PATIENT ON ROOM AIR, WITH EQUAL AND UNLABORED BREATHING. WITH IV ACCESS ON THE LEFT FOREARM G 20 ON SALINE LOCK, IV ACCESS PATENT AND INTACT. PATIENT ABLE TO VERBALIZE NEEDS. NOT COMPLAINING OF ANY PAIN OR DISCOMFORT AT THIS TIME. SAFETY MEASURES ENSURED WITH BED LOCKED, AND AT LOWEST POSITION. SIDE RAILS RAISED. CALL LIGHT WITHIN REACH AT ALL TIMES. WILL CONTINUE TO MONITOR PATIENT.
[2021-02-06 08:22] VITALS: BP 168/92
[2021-02-06] MEDS: LITHIUM CARBONATE 150 MG CAPSULE PO SCH ×2 (08:47→22:45)
[2021-02-06] MEDS: BENZTROPINE MESYLATE (1 MG) 1 MG TABLET PO SCH ×2 (08:47→22:45)
[2021-02-06] MEDS: LIPASE/PROTEASE/AMYLASE 1 EACH CAPSULE.DR PO SCH ×3 (08:47→18:13)
[2021-02-06] MEDS: LISINOPRIL (20MG) 20 MG TABLET PO SCH (08:48)
[2021-02-06] MEDS: AMLODIPINE BESYLATE 5 MG TABLET PO SCH (08:49)
[2021-02-06] MEDS: HEPARIN SODIUM, PORCINE 5000 UNITS/1 ML VIAL SQ SCH ×2 (09:06→22:48)
--- NOTE | 2021-02-06 09:30 | NUR ---
MS RN NOTE SEEN BY DR. LOPEZ. WILL CONTINUE TO MONITOR PATIENT.
[2021-02-06 16:05] VITALS: BP 125/80
[2021-02-06] MEDS: SIMVASTATIN 20 MG TABLET PO SCH (18:13)
--- NOTE | 2021-02-06 18:47 | NUR ---
MS RN CLOSING NOTE PATIENT ASLEEP BUT EASILY AROUSABLE. PATEINT IS ORIENTED X 2. PATIENT ON ROOM AIR, WITH EQUAL AND UNLABORED BREATHING. WITH IV ACCESS ON THE LEFT FOREARM G 20 ON SALINE LOCK, IV ACCESS PATENT AND INTACT. PATIENT ABLE TO VERBALIZE NEEDS. NOT COMPLAINING OF ANY PAIN OR DISCOMFORT AT THIS TIME. SAFETY MEASURES ENSURED WITH BED LOCKED, AND AT LOWEST POSITION. SIDE RAILS RAISED. CALL LIGHT WITHIN REACH AT ALL TIMES. WILL ENDORSE PATIENT FOR CONTINUITY OF CARE.
--- NOTE | 2021-02-06 19:35 | NUR ---
MS RN OPENING NOTES RECEIVED PATIENT LAYING AWAKE IN BED. A/O X2-3. PATIENT WITH REGULAR AND UNLABORED BREATHING ON ROOM AIR, TOLERATED WELL. NO SIGNS AND SYMPTOMS OF DISTRESS NOTED. NO COMPLAINS OF PAIN AT THIS TIME. IV ACCESS LFA G#20 SL. ACCESS PATENT AND INTACT. SAFETY PRECAUTIONS ENFORCED BED LOCKED AND AT LOWEST POSITION. SIDERAILS UP X2. CALL LIGHT WITHIN REACH AT ALL TIMES. WILL CONTINUE TO MONITOR PATIENT.
[2021-02-06 20:00] VITALS: BP 123/73
[2021-02-06] MEDS: TAMSULOSIN 0.4 MG CAP.SR.24H PO SCH (22:45)
[2021-02-06] MEDS: OLANZAPINE 2.5 MG TABLET PO SCH (22:45)
[2021-02-07 06:52] LABS: ALBUMIN 2.7 g/dL (3.4-5.0); BILIRUBIN,TOTAL 0.3 mg/dL (0.2-1.0); CALCIUM, SERUM 8.6 mg/dL (8.5-10.1); CREATININE 1.1 mg/dL (0.6-1.3); POTASSIUM 4.6 mmol/L (3.5-5.1); TOTAL PROTEIN, SERUM 6.3 g/dL (6.4-8.2)
[2021-02-07] MEDS: BLOOD SUGAR DIAGNOSTIC 1 EACH STRIP IN SCH (07:18)
--- NOTE | 2021-02-07 07:38 | NUR ---
MS RN CLOSING NOTES PATIENT STILL LAYING AWAKE IN BED. A/O X2-3. PATIENT WITH REGULAR AND UNLABORED BREATHING ON ROOM AIR, TOLERATED WELL. NO SIGNS AND SYMPTOMS OF DISTRESS NOTED. NO COMPLAINS OF PAIN AT THIS TIME. IV ACCESS LFA G#20 SL. ACCESS PATENT AND INTACT. SAFETY PRECAUTIONS ENFORCED BED LOCKED AND AT LOWEST POSITION. SIDERAILS UP X2. CALL LIGHT WITHIN REACH AT ALL TIMES. WILL ENDORSE ERICK TO DAY SHIFT NURSE.
--- NOTE | 2021-02-07 07:49 | NUR ---
MS RN OPENING NOTES RECEIVED Pt LAYING AWAKE IN BED. A/O X 2-3. Pt HAS REGULAR AND UNLABORED BREATHING ON ROOM AIR, AND IS TOLERATING WELL. NO SIGNS AND SYMPTOMS OF DISTRESS NOTED. NO COMPLAINS OF PAIN AT THIS TIME. IV ACCESS L FA #20g SL. IV ACCESS IS PATENT AND INTACT. SAFETY PRECAUTIONS ENFORCED: BED IS LOCKED AND IN LOWEST POSITION. SIDE RAILS UP X2. CALL LIGHT AND BEDSIDE TABLE WITHIN REACH AT ALL TIMES. WILL CONTINUE TO MONITOR THROUGHOUT THE SHIFT.
[2021-02-07 08:16] VITALS: BP 139/76
[2021-02-07] MEDS: LIPASE/PROTEASE/AMYLASE 1 EACH CAPSULE.DR PO SCH (08:59)
[2021-02-07] MEDS: LITHIUM CARBONATE 150 MG CAPSULE PO SCH (09:00)
[2021-02-07] MEDS: AMLODIPINE BESYLATE 5 MG TABLET PO SCH (09:00)
[2021-02-07] MEDS: HEPARIN SODIUM, PORCINE 5000 UNITS/1 ML VIAL SQ SCH (09:00)
[2021-02-07 09:01] VITALS: BP 139/76
[2021-02-07] MEDS: BENZTROPINE MESYLATE (1 MG) 1 MG TABLET PO SCH (09:01)
[2021-02-07] MEDS: LISINOPRIL (20MG) 20 MG TABLET PO SCH (09:01)
--- NOTE | 2021-02-07 09:12 | NUR ---
MS RN NOTES: WITHHELD HEPARIN HEPARIN NOT GIVEN TO Pt LABS ARE NOT CURRENT.
--- NOTE | 2021-02-07 12:41 | NUR ---
MS RN NOTES- DISCHARGE Pt HAS BEEN DISCHARGED. Pt IS A/OX3-4. BREATHING IS EVEN AND UNLABORED ON ROOM AIR. Pt SAID HE HAD BACK PAIN OF 3/10. TYLENOL WAS ADMINISTERED. NO DISTRESS NOTED. IV ACCESS REMOVED. Pt HAD ALL BELONGINGS. Pt LEFTY VIA GORNEY WITH AMBULANCE
== END 2021-02-07 12:40 | DRG 640 ==
LOC: MED 11:06
PROVIDERS: ADMIT Internal Medicine; ATTEND Internal Medicine
DX: E86.0 Dehydration (principal); N17.0 Acute kidney failure with tubular necrosis; K86.1 Other chronic pancreatitis; R45.851 Suicidal ideations; N13.30 Unspecified hydronephrosis; E87.2 Acidosis; E87.1 Hypo-osmolality and hyponatremia; E87.5 Hyperkalemia; Z20.822 Contact with and (suspected) exposure to COVID-19; E78.5 Hyperlipidemia, unspecified; I10 Essential (primary) hypertension; E11.9 Type 2 diabetes mellitus without complications; F32.A Depression, unspecified; F32.9 Major depressive disorder, single episode, unspecified; F39 Unspecified mood [affective] disorder; F10.21 Alcohol dependence, in remission; Z79.899 Other long term (current) drug therapy; Z82.49 Family history of ischemic heart disease and other diseases of the circulatory system; F41.9 Anxiety disorder, unspecified; N40.0 Benign prostatic hyperplasia without lower urinary tract symptoms
CPT/HCPCS: 36415; 76770-TC; 80053-TC; 82248-TC; 82550-TC; 82570-TC; 82962-TC; 83605-TC; 83735-TC; 84100-TC; 84300-TC; 85025-TC; 87040-TC; 87081-TC; G0378; J1644; J1815; J7030